=== PATIENT | female | born 1980 | race Caucasian/White ===

== ENCOUNTER 2023-07-31 11:23 | Outpatient (OUT) | payer MEDICARE, MEDICAID, SELFPAY ==
[2023-07-31 11:59] LABS: Basophils Percent Auto 0.3 % (0.2-2.0); Eosinophils Absolute Auto 0.1 10^3/uL (0.0-0.7); Eosinophils Percent Auto 1.4 % (0.9-7.0); Hematocrit 39.2 % (36.0-48.0); Hemoglobin 12.8 g/dL (12.0-16.0); Immature Granulocytes Abs Auto 0.01 10^3/uL (0.00-0.03); Immature Granulocytes Pct Auto 0.3 % (0.0-0.5); Lymphocytes Absolute Auto 0.9 10^3/uL (1.2-3.8); Mean Corpuscular HGB Conc 32.7 g/dL (29.9-35.2); Mean Corpuscular Hemoglobin 32.8 pg (26.7-34.0); Mean Corpuscular Volume 100.5 fL (81.0-99.0); Mean Platelet Volume 10.3 fL (9.5-13.5); Monocytes Absolute Auto 0.5 10^3/uL (0.3-0.8); Monocytes Percent Auto 12.4 % (1.7-12.0); Neutrophils Absolute Auto 2.2 10^3/uL (1.4-6.5); Neutrophils Percent Auto 59.6 % (43.0-75.0); Platelet Count 124 10^3/uL (150-450); White Blood Count 3.6 10^3/uL (4.0-11.0)
[2023-07-31 13:02] LABS: Alanine Aminotransferase 22 U/L (14-59); Albumin Globulin Ratio 1.1; Albumin Level 3.8 g/dL (3.4-5.0); Alkaline Phosphatase 60 U/L (46-116); Anion Gap 11.1; Aspartate Amino Transferase 21 U/L (15-37); BUN Creatinine Ratio 24.4; Bilirubin Direct 0.1 mg/dL (0.0-0.2); Bilirubin Total 0.3 mg/dL (0.2-1.0); Calcium 8.9 mg/dL (8.5-10.1); Carbon Dioxide 31.2 mmol/L (21.0-32.0); Chloride 103 mmol/L (98-107); Estimated GFR (African America >60 (>=60); Estimated GFR (Non-African Ame >60 (>=60); Globulin 3.4 g/dL; Glucose 75 mg/dL (74-106); Potassium 4.3 mmol/L (3.5-5.1); Sodium 141 mmol/L (136-145); Total Protein 7.2 g/dL (6.4-8.2)
[2023-08-01 05:07] LABS: Carbamazepine(Tegretol),S 5.4 ug/mL (4.0-12.0); Phenobarbital, Serum 18 ug/mL (15-40)
== END 2023-07-31 11:24 | disposition home or self-care (01) ==
LOC: LAB 11:29
PROVIDERS: PCP Family Medicine
DX: R56.9 Unspecified convulsions (principal)
CPT/HCPCS: 36415; 80048; 80076; 80156; 80184; 85025

== ENCOUNTER 2024-06-27 15:26 | Outpatient (OUT) | payer MEDICARE, MEDICAID, SELFPAY ==
[2024-06-27 16:00] LABS: Basophils Percent Auto 0.2 % (0.2-2.0); Eosinophils Absolute Auto 0.1 10^3/uL (0.0-0.7); Eosinophils Percent Auto 1.9 % (0.9-7.0); Hematocrit 40.9 % (36.0-48.0); Hemoglobin 13.4 g/dL (12.0-16.0); Immature Granulocytes Abs Auto 0.01 10^3/uL (0.00-0.03); Immature Granulocytes Pct Auto 0.2 % (0.0-0.5); Lymphocytes Absolute Auto 1.4 10^3/uL (1.2-3.8); Mean Corpuscular HGB Conc 32.8 g/dL (29.9-35.2); Mean Corpuscular Hemoglobin 32.8 pg (26.7-34.0); Mean Corpuscular Volume 100.2 fL (81.0-99.0); Mean Platelet Volume 10.7 fL (9.5-13.5); Monocytes Absolute Auto 0.6 10^3/uL (0.3-0.8); Monocytes Percent Auto 13.1 % (1.7-12.0); Neutrophils Absolute Auto 2.6 10^3/uL (1.4-6.5); Neutrophils Percent Auto 55.6 % (43.0-75.0); Platelet Count 148 10^3/uL (150-450); Red Blood Count 4.08 10^6/uL (4.20-5.40); Red Cell Distribution Width 12.3 % (11.0-15.0); White Blood Count 4.7 10^3/uL (4.0-11.0)
[2024-06-27 17:07] LABS: Alanine Aminotransferase 20 U/L (14-59); Albumin Globulin Ratio 1.1; Albumin Level 3.8 g/dL (3.4-5.0); Alkaline Phosphatase 71 U/L (46-116); Aspartate Amino Transferase 18 U/L (15-37); BUN Creatinine Ratio 19.6; Bilirubin Total 0.3 mg/dL (0.2-1.0); Calcium 8.6 mg/dL (8.5-10.1); Carbon Dioxide 32.1 mmol/L (21.0-32.0); Chloride 101 mmol/L (98-107); Estimated GFR (African America >60 (>=60); Estimated GFR (Non-African Ame >60 (>=60); Globulin 3.4 g/dL; Glucose 84 mg/dL (74-106); Potassium 4.1 mmol/L (3.5-5.1); Sodium 135 mmol/L (136-145); Total Protein 7.2 g/dL (6.4-8.2)
[2024-06-29 08:08] LABS: Carbamazepine(Tegretol),S 3.3 ug/mL (4.0-12.0); Phenobarbital, Serum 18 ug/mL (15-40)
== END 2024-06-27 15:27 | disposition home or self-care (01) ==
LOC: LAB 15:28
PROVIDERS: PCP Family Medicine; Visit Provider Family Medicine
DX: Z00.00 Encounter for general adult medical examination without abnormal findings (principal); G40.909 Epilepsy, unspecified, not intractable, without status epilepticus
CPT/HCPCS: 36415; 80053; 80156; 80184; 85025

== ENCOUNTER 2025-10-31 10:50 | Outpatient (OUT) | payer MEDICARE, MEDICAID, SELFPAY ==
--- OUTSIDE RECORDS SUMMARY | 2025-10-21 09:30 | XMS_ITS | Continuity of Care Document ---
Author Organization [facility] Address [address] [place] [address] Phone Care Team Providers Care Arboreal Scientist Name Role Phone Coby Peralta APRN Attending Provider NON STAFF Primary Care Provider Unavailabl e Care Teams Patient Care Team Team Status: Active Member Role/Relationship Status Dates NON STAFF Primary Care Provider Active Patient Care Team Team Status: Inactive Member Role/Relationship Status Dates Coby Peralta APRN Attending Provider Active Start: October 21, 2025 End: October 21, 2025NON STAFFPrimary Care ProviderActiveStart: October 21, 2025 End: October 21, 2025 Chief Complaint and Reason for Visit Chief Complaint Admit Date follow up October 21, 2025 1:47pm Reason for Visit Admit Date Mental disability October 21, 2025 1:47pm Nightmares October 21, 2025 1:47pm REM sleep behavior disorder October 1:47pm Seizure disorder October 21, 2025 1:47pm Allergies, Adverse Reactions, Alerts Allergen Type Severity Reaction Last Updated Verified Status No Known Allergies Allergy Unknown October 21, 2025 2:06pmYesActive Social History Smoking Status Unknown if ever smoked Observation Status Observation Response Date of Response Legal Sex Female (finding) Sex Assigned At BirthFemaleSeptember 1979 Problems Active Problems Problem Diagnosis/Recorded Date Onset Date Stat us Unspecified convulsions April 22, 2025 3:43pm Unknown Active Mental disability October 21, 2025 2:12pm Unknown Active Nightmares October 21, 2025 2:12pm Unknown A ctive REM sleep behavior disorder October 21, 2025 2:12pm Unknown Active Seizure disorder October 21, 2025 2:12pm Unknown Active Medications Medication Status Dose Units Route Directions Qty Days Refills S tart Date Stop Date End Date Reason(s) Instructions Adherence Quetiapine (Seroquel) 25 mg tablet Discontinued 0 PODaily at [id number] 17th, 2025 11:00pmSept2024 9:26am1/2-1 tablet orally daily at bedtime;Phenobarbital 97.2 mg yjwrqfZapmdzygoluc69.2MGPO Daily at ebmebhw30093Sviv2024 11:00pmJun2024 2:40pmConvulsions Unspecified convulsionsPhenobarbital 97.2 mg pqgvddRsqxnhwdnuhq93.2MGPODaily at ctqyilo12013Adwv 19th, 2025 2:38pmJun2024 3:19pmConvulsions Unspecified convulsionsPhenobarbital 97.2 mg jhchxyQxjixwcdeulp08.2MGPODaily at qdospbc25166Inzu 19th, 2025 3:19pmSept2024 9:26amConvulsions Unspecified convulsionsQuetiapine (Seroquel) 25 mg oxilxwKzeyjh2PWDgbep at thonjnm97817Aqpswxihs2024 9:23am1/2-1 tablet orally daily at bedtime; Complies with drug therapyPhenobarbital 97.2 mg gbnvmkIbqcfe72.2MGPODaily at fqpgbsv04625Bzbkjmvmr2024 9:25amConvulsions Unspecified convulsionsComplies with drug therapyCarbamazepine 200 mg capsule, ER multiphase 12 ieUtffcokusqkz838TEUHXkmre dhxik95880BxklxjvhSeptember 15, 2025 12:00amNove2024 5:52pmCarbamazepine 200 mg capsule, ER multiphase 12 udSbwbor713AWOPDmuax hnnor761826Xhfuggoi 11th, 2025 5:52pmComplies with drug therapyLinaclotide (Linzess) 145 mcg jiolnukIxlksu745IVYSLVhkgjWkaclcpi 17th, 2025 12:00amComplies with drug therapy Vital Signs Vital Reading Result Reference Range Collection Date/Time BP Systolic 118 mm[Hg] 100-140 October 21, 2025 2:11pm BP Diastolic 72 mm[Hg] 60-100 Eric 17th, 2025 2:11pm Advance Directives Advance Directive Response Recorded Date/ Time Advance Directives No July 8:38am Insurance Providers Guarantor Lyn Caba Address [address] [place] [address]Iebjdee Info.Home Phone: Coverage Status Update:2025 Payer Group Member ID Coverage Type Subscriber Relationship to Subscriber Effective Date Expiration Date Medicaid [id number] A Gertrudis Id: [id number] [address] [place] [address] Home Phone: Email: [email or web address] [id number] A Gertrudis Id: [id number] [address] [place] [address] Home Phone: Email: [email or web address] RaMy[facility] PGBA [id number] A Gertrudis Id: [id number] [address] [place] [address] Home Phone: Email: [email or web address] Encounter Location(s) Arrival/Admit Date Discharge/Departure Date Discharge/Departure Disposition Provider(s) Departed Physician/ Provider Office Visit -[facility] Neu[facility] [place] October 21, 2025 1:47pm October 21, 2025 2:29pm Discharged to home care or self care (routine discharge) Christophe Andres APRN Recent Diagnosis Onset Date Admit Date Mental disability Unknown October 21, 2025 1:47pm Nightmares Unknown October 21, 2 025 1:47pm REM sleep behavior disorder Unknown Dece mber 2024 1:47pm Seizure disorder Unknown October 21, 2025 1:47pm Assessments Diagnosis Onset Date Resolution Status Admit Date Mental disability acuteDece2024 1:47pmNightmaresacuteDece2024 1:47pmREM sleep behavior disorderacuteDece2024 1:47pmSeizure disorderacute October 21, 2025 1:47pm Plan of Treatment Author [facility]y [facility]eralta [facility] CenterAuthoredDecevic 2024 2:25pmReview and summary of old records: Labwork 07/2023 BMP and LFTs unremarkable, CBC with Diff WBC 3.6, RBC 3.9, PLTs 124, abs lymphs 0.9, 10/2021 WBC 5.4, PLTs 134, abs lymphs 1.3 to compare most recent, tegretol 5.4, phenobarb 18 06/27/2024 phenobarb 18, carbamazepine 3.3, CMP and CBC with diff slight variations, WBC 4.7 . . 44 year-old female with MRDD and seizure disorder that remains controlled on her current meds. She has not had a breakthrough seizure in many years. Her labs fairly good with just some minor variations. Her PCP is monitoring that also. Her WBC was low but is back in normal range. ?? Insomnia and some nightmares so we will go ahead and increase her Seroquel to 1- 2 at bedtime and see if that helps out. Her REM behavior disorder appears to be controlled at this time. Have some sleep cycle disorder as she automatically wakes up at 4 or 5 am pending clock/time change and no matter when she goes to bed. She does go to dayhab/workshop 5 days/week. She will take a nap after her dayhab at times. ?? Mother is aware of the black box warning with the Seroquel with increased risk of falls stroke and she has been tolerating well and they feel the risk is worth the benefit. . . . Plan Can increase the Seroquel to 1-2 at bedtime continue seroquel 25mg 1/2- 1 tabs po QHS continue phenobarbital 97.2 mg po QHS continue carbatrol 200mg ER po BID OARRS reviewed at time of refills and today, no concerns The patient was counseled on proper sleep hygiene and adequate hours of sleep. Monitor for any worsening Call if new seizures This was discussed with the patient, all questions were answered and they agreed with the treatment plan. The patient is to call with any worsening of the condition or new symptoms. ?? Return to clinic: 6 months Future Tests Future scheduled test information is unavailable Pending Tests Pending diagnostic test information is unavailable Future Visits Future appointment information is unavailable Future Procedures Procedure Name Ordered Date Scheduled Date Basic Metabolic Panel October 21, 2025 2:25pm Carbamazepine (Tegretol)October 21, 2025 2:25pmComplete Blood Count Auto Diff October 21, 2025 2:25pmHepatic PanelDecember 2024 2:25pmPhenobarbital October 21, 2025 2:25pm Future Medications Future medication information is unavailable Patient Instructions Patient instructions are unavailable
--- OUTSIDE RECORDS SUMMARY | 2025-10-31 10:55 | XMS_ITS | CCD ---
Author Organization [facility] Care Team Providers Care Electrical Maintenance Supervisor Name Role Phone ABRAHAM, DR SANTOS Attending Unavailable ABRAHAM, DR SANTOS Consulting Unavailable ABRAHAM, DR SANTOS Admitting Unavailable MARIJA, DR KING Snider Primary Care Unavailable Jack Ayala MD Primary Care Provider Jack Ayala MD Primary Care Provider Tom Rosario DO Unavailable Jack Ayala Attending Unavailable Jack Ayala Attending Unavailable Jack Ayala Attending Unavailable Jack Ayala Attending Unavailable Jack Ayala Attending Unavailable Jack Ayala Attending Unavailable Jack Ayala Attending Unavailable ANDREW BARRAZA Attending Unavailable JAY SALCIDO Attending Unavailable TOM ROSARIO Attending Unavailable JAY SALCIDO Attending Unavailable GLORIA AMAYA Attending Unavailable JAY SALCIDO Attending Unavailable JAY SALCIDO Attending Unavailable JAY SALCIDO Attending Unavailable Allergies Allergy ClassificationReported Allergen(s)Allergy TypeDate of OnsetReaction(s) Facility (1 source)No Known Medication Allergies; Translations: [No Known Medication Allergies]Propensity to adverse reactions (disorder)[facility] Medications Current Medications MedicationDrug Class(es)DatesSig (Normalized)Sig (Original)12 hr carBAMazepine 200 mg extended release oral capsule (20 sources)Mood StabilizerStart: [id number] 1 capsule by mouth in the morning, then take 1 capsule by mouth every twelve hours at bedtimecarBAMazepine ER (Carbatrol) 200 MG 12 hr capsule Indications: Seizure disorder (HCC) Take 1 capsule (200 mg) by mouth in the morning and 1 capsule (200 mg) before bedtime. 180 capsule 1 01/13/2025 ActiveStart: 01-13-2025 End: 77-02-7665wpfm 1 capsule by mouth in the morning, then take 1 capsule by mouth every twelve hours at bedtimecarBAMazepine ER (Carbatrol) 100 MG 12 hr capsule Indications: Sleep-wake cycle disorder , Seizure (CMS/HCC) , Seizure disorder (CMS/HCC) Take 1 capsule (100 mg) by mouth in the morning and 1 capsule (100 mg) before bedtime. Do not crush or chew.. 180 capsule 1 01/13/2025 01/13/2025 Discontinued (Therapy completed)Start: 42-93-0365momf 1 capsule by mouth in the morning, then take 1 capsule by mouth every twelve hours at bedtime carBAMazepine ER (Carbatrol) 200 MG 12 hr capsule Indications: Seizure disorder (CMS/HCC) Take 1 capsule (200 mg) by mouth in the morning and 1 capsule (200 mg) before bedtime. 180 capsule 1 07/28/2024 ActiveStart: 03-18-2024 End: 13-37-9995jhso 1 capsule by mouth twice dailycarBAMazepine ER (Carbatrol) 200 MG 12 hr capsule Indications: Seizure disorder (CMS/HCC) TAKE ONE CAPSULE BY MOUTH TWICE A DAY 180 capsule 1 03/18/2024 07/28/2024 Discontinued (Reorder)take 1 capsule by mouth in the morning, then take 1 capsule by mouth every twelve hours at bedtimecarBAMazepine ER (Carbatrol) 100 MG 12 hr capsule Take 100 mg by mouth in the morning and 100 mg before bedtime. Do not crush or chew. . Active linaclotide 0.072 mg oral capsule (17 sources)Guanylate Cyclase-C Agonisttake 1 capsule by mouth once dailyLinzess 72 MCG capsule Take 72 mcg by mouth Daily ActivePHENobarbital 97.2 mg oral tablet (20 sources)Start: 62-89-0416eguk 1 tablet by mouth at bedtimePHENobarbital (Luminal) 97.2 MG tablet Indications: Seizure (HCC) Take 1 tablet (97.2 mg) by mouth at bedtime R56.9 90 tablet 01/13/2025 ActiveStart: 65-11-5319osjd 1 tablet by mouth at bedtimePHENobarbital (Luminal) 97.2 MG tablet Indications: Seizure (CMS/HCC) Take 1 tablet (97.2 mg) by mouth at bedtime R56.9 90 tablet 10/27/2024 ActiveStart: 04-28-2024 End: 07-24-3306eavv 1 tablet by mouth at bedtimePHENobarbital (Luminal) 97.2 MG tablet Indications: Seizure (CMS/HCC) Take 1 tablet (97.2 mg) by mouth at bedtime R56.9 90 tablet 07/28/2024 10/23/2024 Discontinued (Reorder)QUEtiapine 25 mg oral tablet (20 sources)Atypical AntipsychoticStart: 91-27-1966qtpp 1-2 tablets by mouth once at bedtimeQUEtiapine (SEROquel) 25 MG tablet Indications: Sleep-wake cycle disorder 1-2 po q hs 180 tablet 1 01/13/2025 ActiveStart: 07-28-2024 End: 86-60-1207smiu 1 tablet by mouth at bedtimeQUEtiapine (SEROquel) 25 MG tablet Indications: Sleep-wake cycle disorder Take 1 tablet (25 mg) by mouth at bedtime 90 tablet 1 07/28/2024 Active Problems Active Problems Problem ClassificationProblemDateDocumented DateEpisodic/ChronicDevelopmental disorders (20 sources)Intellectual disability; Translations: [Unspecified intellectual disabilities]49-76-7453CivvfcdPzhhekwxi usually diagnosed in infancy, childhood, or adolescence (20 sources)Behavioral and emotional 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; Translations: [Unspecified behavioral and emotional disorders with onset usually occurring in childhood and adolescence]Onset: [id number] Epilepsy; convulsions (19 sources)Seizure disorder; Translations: [Epilepsy, unspecified, not intractable, without status epilepticus]Onset: [id number] Epilepsy; convulsions (20 sources)Unspecified convulsions; Translations: [Seizure]Onset: 10-31-2021 EpisodicMycoses (6 sources)Pain in toe; Translations: [Tinea unguium]90-38-9492MsykvcybSprwi acquired deformities (18 sources)Scoliosis deformity of spine; Translations: [Scoliosis, unspecified] 38-54-5048ThscohrHnhrw and unspecified benign neoplasm (2 sources)Melanocytic nevus of trunk; Translations: [Melanocytic nevi of trunk] 15-60-7522QzvvndenHwnxf and unspecified benign neoplasm (2 sources)Melanocytic nevus of right lower limb; Translations: [Melanocytic nevi of right lower limb, including hip]16-40-4293SinlutihGdwul and unspecified benign neoplasm (2 sources)Melanocytic nevus of left lower limb; Translations: [Melanocytic nevi of left lower limb, includinghip]02-03-9911QrpjnpocZarwd and unspecified benign neoplasm (2 sources)Melanocytic nevus of upper limb; Translations: [Melanocytic nevi of unspecified upper limb, including shoulder]07-15-0335AvgufwxuQouso nervous system disorders (20 sources)Abnormal circadian rhythm; Translations: [Circadian rhythm sleep disorder, unspecified type]Onset: 771956-42-8850SfsbamgAivwi skin disorders (2 sources)Seborrheic keratosis; Translations: [Other seborrheic keratosis] 00-72-0550TgnokfszKzanq skin disorders (2 sources)Scar conditions and fibrosis of skin; Translations: [Scar conditions and fibrosis of skin]50-77-2151FijgswmaQqfeudkt codes; unclassified (20 sources)REM sleep behavior disorder; Translations: [REM sleep behavior disorder]Onset: hronic Past or Other Problems Problem ClassificationProblemDateDocumented DateEpisodic/ChronicOther connective tissue disease (1 source)Pain of toes of bilateral feet; Translations: [Pain in right toe(s)] 28-74-3154Ucftbcof Results Test NameValueInterpretationReference RangeFacilityAmbulatory Visit Summaryon 17-03-0749Movqwldvez Visit SummaryAmbulatory Visit Summary ELVER PENN :1980 Visit Date:06/17/2025 Ambulatory Visit Instructions Your Diagnosis UTI symptoms Your Care Team Attending Physician - ANDREW BARRAZA CNP Primary Care Physician - Jack Ayala MD This Is Your Medications List nitrofurantoin (Macrodantin 100 mg oral capsule) Contact prescribing physician if questions or concerns carbamazepine (carbamazepine 200 mg ER Tab) linaclotide (Linzess 145 mcg oral capsule) multivitamin phenobarbital (phenobarbital 97.2 mg oral tablet) polyethylene glycol 3350 (MiraLax) quetiapine (SEROquel 25 mg Tab) Procedures Performed Duarte pastor, Myringotomy. Discharge Vitals Temperature (Axillary) 36.8 ???C Respiratory Rate 18 Blood Pressure 110/76 Height 163.2 cm Height 64 in Weight 55.3 kg Weight 121.915 lb BMI 20.76 What to do next Scheduled Follow-Up Appointments 2025 1:00 PM EDT Where: [facility] [id number] [place] [address]- Medications What How Much When Why Instructions New nitrofurantoin (Macrodantin 100 mg oral capsule) 1 Capsules By Mouth 4 times a day UTI symptomsDuration: 5 Days Pickup at [facility] Unchanged carbamazepine (carbamazepine 200 mg ER Tab) 1 Tablets By Mouth 2 times a day Contact prescribing physician if questions or concerns Unchanged linaclotide (Linzess 145 mcg oral capsule) 1 Capsules By Mouth Every day Contact prescribing physician if questions or concerns Unchanged multivitamin See instructions Take one orally daily Contact prescribing physician if questions or concerns Unchanged phenobarbital (phenobarbital 97.2 mg oral tablet) 1 Tablets By Mouth At bedtime Contact prescribing physician if questions or concerns Unchanged polyethylene glycol 3350 (MiraLax) See instructions Use as directed as needed for constipation Contact prescribing physician if questions or concerns Unchanged quetiapine (SEROquel 25 mg Tab) See instructions 1-2 tab orally at bedtime Contact prescribing physician if questions or concerns Pharmacy Information [facility]: [address], [place] [id number] [phone] Allergies No Known Medication Allergies Problems Ongoing - Any problem that you are currently receiving treatment for. 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 Please share your experience with us by completing your survey. We appreciate your feedback and thank you for choosing us for your care. Patient Portal You may access all of your results and other medical record information on our secure patient portal. If you are not signed up for this yet, please contact Health Information Management at [phone] to get signed up today. Language Information Language assistance services are available as needed. [facility] Office/Clinic Noteon [id number] Medicine Office/Clinic NoteFabournewood hospital Medicine Office/Clinic Note Chief Complaint Possible UTI The patient presents with symptoms suggestive of a urinary tract infection. HPI Staff Former Dr Jamie hawkins. Presenting today for possible UTI. Pt is incapable of providing urine specimen to to disability. Complete incontinence. Mom does state that her urine has had a strong odor to it since Sunday. Urine is also a darker color. Have not noticed a fever. Has been more restlessness at night. I have reviewed and verified the staff HPI to be accurate for this encounter. History of Present Illness 44-year-old female presenting with her mother with pressumtive symptoms suggestive of a urinary tract infection. The symptoms began approximately one week ago, characterized by dark, foul-smelling urine and increased urinary frequency noted by her daycare. The patient is non-verbal, making symptom a ssessment challenging, but she has been restless at night, which is atypical for her. Attempts to collect a urine sample at home were unsuccessful, and previous attempts at catheterization were traumatic and unsuccessful. The patient has no known allergies to medications and has not been on antibiotics since last fall for a sore throat. The caregiver has been administering cranberrysupplements and encouraging fluid intake to alleviate symptoms. Review of Systems - Genitourinary: Reports dark, foul-smelling urine and increased urinary frequency. Denies ability to provide a urine sample. - Neurological: Reports restlessness at night, atypical behavior for the patient. Physical Exam Vitals & Measurements T: 36.8 ???C(Axillary) RR: 18 BP: 110/76 HT: 64 in HT: 163.2 cm WT: 121.915 lb WT: 55.3 kg BMI: 20.76 General: alert, no acute distress Skin: warm, dry Cardiovascular: regular rate and rhythm, normal peripheral perfusion Respiratory: Lungs CTA, respirations non labored Gastrointestinal: soft, non distended, no tenderness, no guarding. Back: No tenderness, Normal ROM, Normal alignment. Assessment/Plan 1. UTI symptoms (R39.9: Unspecified symptoms and signs involving the genitourinary system) - Consideration for empirical antibiotic therapy due to inability to obtain a urine sample and previous traumatic catheterization attempts. - Monitor fluid intake and encourage hydration to help alleviate symptoms. - Plan to conduct blood work if symptoms persist to check for elevated white blood cell count as anindicator of infection. 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 Medications carbamazepine 200 mg ER Tab, 200 mg= 1 tab(s), Oral, BID Linzess 145 mcg oral capsule, 145 mcg= 1 cap(s), Oral, Daily Macrodantin 100 mg oral capsule, 100 mg= 1 cap(s), Oral, QID MiraLax, See Instructions multivitamin, See Instructions phenobarbital 97.2 mg oral tablet, 97.2 mg= 1 tab(s), Oral, Bedtime SEROquel 25 mg Tab, See Instructions Allergies No Known Medication Allergies Social History Alcohol - Denies Alcohol Use, 01/22/2025 Substance Abuse - Denies Substance Abuse, 01/22/2025 Tobacco - Denies Tobacco Use, 01/22/2025 Never (less than 100 in lifetime) Tobacco Use:. Never Smokeless Tobacco Use:. Household tobacco concerns: No. Yes, 06/17/2025 Family History Family history is negative Immunizations Vaccine Date Status Comments influenza virus vaccine, inactivated 07/22/2024 Given influenza virus vaccine, inactivated 09/25/2023 Recorded SARS-CoV-2 (COVID-19) [id number] 10/18/2022 Recorded 2024-01-30: TPV40 influenza virus vaccine, inactivated 09/02/2022 Recorded influenza virus vaccine, inactivated 10/13/2021 Recorded SARS-CoV-2 (COVID-19) mRNA-1273 vaccine 09/09/2021 Recorded 2024-01-30: TPV40 SARS-CoV-2 (COVID-19) mRNA-1273 vaccine 12/30/2020 Recorded SARS-CoV-2 (COVID-19) mRNA-1273 vaccine 12/02/2020 Recorded influenza virus vaccine, inactivated 09/13/2020 Recorded influenza virus vaccine, inactivated 09/04/2018 Recorded influenza virus vaccine, inactivated 09/20/2017 Recorded influenza virus vaccine, inactivated 11/06/2014 Recorded hepatitis B adult vaccine 02/04/2003 Recorded hepatitis B adult vaccine 04/23/2002 Recorded hepatitis B adult vaccine 03/05/2002 Recorded measles/mumps/rubella virus vaccine 07/08/1993 Recorded measles/mumps/rubella virus vaccine 10/05/1982 RecordedCincinnati Children's Hospital Medical CenterComment on above:Result Comment: Electronically Signed By: ANDREW BARRAZA CNP\.br\Date and Time Signed: 06/17/25 15:22 EDTAmbulatory Visit Summaryon 40-49-8386Vmxmfhqiom Visit SummaryAmbulatory Visit Summary ELVER PENN :1980 Visit Date:01/22/2025 Ambulatory Visit Instructions Your Diagnosis Encounter for initial annual wellness visit (AWV) in Medicare patient Epilepsy Seizures Screening for ischemic heart disease Your Care Team Attending Physician - Jack Ayala MD Primary Care Physician - Jack Ayala MD This Is Your Medications List carbamazepine (carbamazepine 200 mg ER Tab) linaclotide (Linzess 145 mcg oral capsule) multivitamin phenobarbital (phenobarbital 97.2 mg oral tablet) polyethylene glycol 3350 (MiraLax) quetiapine (SEROquel 25 mg Tab) Procedures Performed Duarte pastor, Myringotomy. Discharge Vitals Heart Rate (Peripheral) 64 Blood Pressure 104/60 Height 163.2 cm Height 64 in Weight 53.0 kg Weight 116.845 lb BMI 19.9 What to do next Scheduled Follow-Up Appointments 2024 8:20 AM EDT Where: [address] [address] 2025 1:00 PM EDT Where: [facility] [address] [address]- You Need to Complete the Following Lipid Panel, Blood, Routine collect, 01/22/25, Order for future visit, Lab Collect, Screening for ischemic heart disease, Print Label By Order Location Medications What How Much When Instructions Unchanged carbamazepine (carbamazepine 200 mg ER Tab) 1 Tablets By Mouth 2 times a day Unchanged linaclotide (Linzess 145 mcg oral capsule) 1 Capsules By Mouth Every day Unchanged multivitamin See instructions Take one orally daily Unchanged phenobarbital (phenobarbital 97.2 mg oral tablet) 1 Tablets By Mouth At bedtime Unchanged polyethylene glycol 3350 (MiraLax) See instructions Use as directed as needed for constipation Unchanged quetiapine (SEROquel 25 mg Tab) See instructions 1-2 tab orally at bedtime Allergies No Known Medication Allergies Problems Ongoing - Any problem that you are currently receiving treatment for. 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 Please share your experience with us by completing your survey. We appreciate your feedback and thank you for choosing us for your care. [facility] CenterAmbulatory Visit Summary Ambulatory Visit Summary ELVER PENN :1980 Visit Date:01/22/2025 Ambulatory Visit Instructions Your Diagnosis Epilepsy Seizures BMI less than 19,adult Nonsmoker Chronic idiopathic constipation Your Care Team Attending Physician - Jack Ayala MD Primary Care Physician - Jack Ayala MD This Is Your Medications List carbamazepine (carbamazepine 200 mg ER Tab) linaclotide (Linzess 145 mcg oral capsule) multivitamin phenobarbital (phenobarbital 97.2 mg oral tablet) polyethylene glycol 3350 (MiraLax) quetiapine (SEROquel 25 mg Tab) Procedures Performed Duarte pastor, Myringotomy. What to do next Scheduled Follow-Up Appointments Sunday 1:40 PM EDT With: Jack Ayala MD Where: [address] [address] 2025 1:00 PM EDT With: Where: [address] [address]- You Need to Complete the Following Lipid Panel, Blood, Routine collect, 01/22/25, Order for future visit, Lab Collect, Screening for ischemic heart disease, Print Label By Order Location Medications What How Much When Instructions Unchanged carbamazepine (carbamazepine 200 mg ER Tab) 1 Tablets By Mouth 2 times a day Unchanged linaclotide (Linzess 145 mcg oral capsule) 1 Capsules By Mouth Every day Unchanged multivitamin See instructions Take one orally daily Unchanged phenobarbital (phenobarbital 97.2 mg oral tablet) 1 Tablets By Mouth At bedtime Unchanged polyethylene glycol 3350 (MiraLax) See instructions Use as directed as needed for constipation Unchanged quetiapine (SEROquel 25 mg Tab) See instructions 1-2 tab orally at bedtime Allergies No Known Medication Allergies Problems Ongoing - Any problem that you are currently receiving treatment for. 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 Please share your experience with us by completing your survey. We appreciate your feedback and thank you for choosing us for your care. [facility] Medicine Office/Clinic Noteon [id number] Medicine Office/Clinic NotePhaneuf Hospital Medicine Office/Clinic Note Chief Complaint Initial Medicare Wellness History of Present Illness Covid-19, MERS, Ebola Screen *Contact With Person With Highly Contagious Disease Like Ebola/MERS/COVID-19 AND Have One or More of the Symptoms Below : No *Travel to a Country With Wide-Spread Ebola/MERS/COVID-19 in the Past 21 Days AND Have One or More of the Symptoms Below : No Patient Reported Covid-19 Testing : No *Verify Droplet, Contact Precautions for Ebola (Reference for CDC) : N/A *Verify Airborne, Droplet Precautions for MERS/COVID-19 : N/A Cortney Beaulieu - 01/22/2025 13:06 EDT Medicare/Medicaid Summary Systolic Blood Pressure : 104 mmHg Diastolic Blood Pressure : 60 mmHg Blood Pressure Location : Right arm Blood Pressure Position : Sitting O2 Sat Resting/Exertion Alpha : Resting Peripheral Pulse Rate : 64 bpm Cortney Beaulieu - 01/22/2025 13:19 EDT Patient Counseled : Nutrition, Physical activity Weight Measured : 53.0 kg(Converted to: 116 lb 14 Ounces, 116.845 lb) Body Mass Index Measured : 19.9 kg/m2 Weight in Pounds : 116.845 lb Pain Present : No actual or suspected pain Cortney Beaulieu - 01/22/2025 13:08 EDT Chief Complaint : Initial Medicare Wellness Height/Length Measured : 163.2 cm(Converted to: 5 ft 4 in, 64.25 in) Height in Inches : 64 in Cortney Beaulieu - 01/22/2025 13:06 EDT Hearing and Vision Screening FT FT Whisper Test Comments : no hearing deficits Vision Screen Comments : n/a Cortney Beaulieu - 01/22/2025 13:08 EDT Advance Directive FT Advance Directive : No Cortney Beaulieu 01/22/2025 13:08 EDT Procedures / Surgeries FT - Procedure History (As Of: 01/22/2025 13:19:47 EDT) Anesthesia Minutes: 0 ; Procedure Name: Duarte pastor, for scoliosis ; Procedure Minutes: 0 ; LastReviewed Dt/Tm: 01/22/2025 13:10:14 EDT Anesthesia Minutes: 0 ; Procedure Name: Myringotomy ; Procedure Minutes: 0 ; Comments: 01/30/2024 9:07 EDT - Johanna Marrufo LPN 1982 ; Last Reviewed Dt/Tm: 01/22/2025 13:10:14 EDT Family History Family History (As Of: 01/22/2025 13:19:47 EDT) Negative History Medicare/Medicaid Social History FT Social History (As Of: 01/22/2025 13:19:47 EDT) Alcohol: Denies Alcohol Use (Last Updated: 01/22/2025 13:10:45 EDT by Cortney Beaulieu ) Tobacco: Denies Tobacco Use Never (less than 100 in lifetime) Tobacco Use:. Never Smokeless Tobacco Use:. (Last Updated: 01/22/2025 13:11:03 EDT by Cortney Beaulieu) Substance Abuse: Denies Substance Abuse (Last Updated: 01/22/2025 13:10:49 EDT by Cortney Beaulieu ) Health Risk Assessment FT Hazards in your house? : No Fall Risk Past Year : No Worried About Falling : No Use a Cane or Walker? : No Someone Helps You in the Morning : Yes Fallen or felt dizzy standing up? : No Assistance with personal care? : Yes Trouble taking meds correctly? : Yes HRA Pain Present : No Able to walk without help? : No Ability to shop w/out help : No Prepare your own meals? : No Housework without help? : No Handle money without help : No Track own medications without help? : No Overall mood for past four weeks : Pretty well General health rating : Good Someone avail. to help if needed? : Yes, as much as I wanted Phys. & emotional health limit social act? : Slightly Cortney Beaulieu - 01/22/2025 13:08 EDT Misc Health Risks Grid Sexual problems : Seldom Trouble eating well : Seldom Teeth or denture problems : Seldom Problems using the telephone : Seldom Cortney Beaulieu 01/22/2025 13:08 EDT Confident you control health problems : Not very confident Difficulties driving your car? : Not applicable, I do not use a car Seatbelts : I always fasten my seat belt Cortney Beaulieu 01/22/2025 13:08 EDT Depression Screening Depression Screening Result : Not applicable - Screening Not Done (see above) Cortney Beaulieu 01/22/2025 13:08 EDT Social Determinants (PRAPARE) Only Required Stubbs highlighed in yellow need to be filled out and will trigger a referral to the Chronic Care Navigators : [place] What is your housing situation today? : I have housing You or Family Gone Without Household Needs Past Year : No No Transport to Med Appts/Meetings/Work/Meds/Necessities : No Currently Live in Physical and Emotional Safety : Yes Social Determinants (PRAPARE) Info RTF : Social Determinants (PRAPARE) No qualifying data available. Cortney Beaulieu 01/22/2025 13:08 EDT Home Safety Screen FT Emergency Numbers Kept/Updated : Yes Aware of Smoking Dangers : Yes Smoke Alarms/Fire Extinguisher Available : Yes Household Members Fire Safety Knowledge : Yes Floor Rugs Removed or Fastened : Yes Mats in Bathtub/Shower : Yes Stairway Rails or Banisters : Yes Outdoor Clutter Safety : Yes Indoor Clutter Safety : Yes Electrical Cord Safety : Yes Cortney [place] - 01/22/2025 13:08 EDT Medicare/Medicaid Michel Fall Risk History of Fall in Last 3 Months Michel : No Presence of Secondary Diagnosis Michel : N (more content not included)...[facility] HospitalComment on above:Result Comment: Electronically Signed By: Jack Ayala MD\.br\Date and Time Signed: 01/22/25 14:24 EDT\.br\Electronically Co-Signed By: Cortney Beaulieu\.br\Date and Time Co-Signed: 01/22/25 13:52 EDTFamily Medicine Office/Clinic NoteFamily Medicine Office/Clinic Note Chief Complaint Seizure management and constipation issues HPI Staff 6m follow up to epilepsy. Medicare Wellness visit done prior. No seizures. Linzess was increased 07/22/24 due to constipation. Has been working. But mom is still having to give Dulcolax. Did have choking episode last week at school. History of Present Illness The patient is a 44-year-old female presenting with seizure and constipation management. She has a history of epilepsy and experiences seizures, although specific details about these episodes were not extensively covered in this visit. The primary focus was on her chronic idiopathic constipation, worsened despite medication management. She is currently taking Linzess at a higher dose, which provides some relief, but still requires additional use of Dukalox to facilitate bowel movements every few days. This suggests persistent functional constipation issues, possibly compounded by a prior history of hard stools. There was consideration that her irregular toilet habits might also have psychological origins due to a tendency towards avoiding defecation. Alternative treatments, such as Colace, were discussed in context; however, concerns were raised about the potential for dependency. - Discussion on the necessity (or lack thereof) of a cholesterol test given current health status and age. - Recommendations against starting statins as preventative care in the context of low cardiovascular risk. - Previous lab results indicated slightly low RBCS and sodium levels with an increased MCV, potentially related to low B12 or folate levels. However, it was determined not significant enough for re-evaluation at this visit. Physical Exam General: alert, no acute distress ENMT: oral mucosa moist Cardiovascular: Regular rate and rhythm, normal peripheral perfusion Respiratory: Lungs clear to auscultation, respirations non labored Extremities: no deformity, no trauma Neurological: oriented x 4, level of consciousness appropriate for age, CN II- XII intact, motor strength equal & normal bilaterally, speech normal Abdomen: Soft, Non-tender, Non-distended, + Bowel sounds Assessment/Plan 1. Epilepsy (G40.909: Epilepsy, unspecified, not intractable, without status epilepticus) Continues management for epilepsy with stable condition. Ongoing observation for any seizure variances necessary without introducing new treatments. Ordered: CBC w/ Auto Diff Comprehensive Metabolic Panel Folate Level Vitamin B12 Level 2. Seizures (R56.9: Unspecified convulsions) Follow up with Neuro. Ordered: CBC w/ Auto Diff Comprehensive Metabolic Panel Folate Level Vitamin B12 Level 3. BMI less than 19,adult (Z68.1: Body mass index [BMI] 19.9 or less, adult) BMI education added. Ordered: CBC w/ Auto Diff Comprehensive Metabolic Panel Folate Level Vitamin B12 Level 4. Nonsmoker (Z78.9: Other specified health status) Encouragement of continued non-smoking lifestyle, optimizing health outcomes. Reassessment for cholesterol testing deemed unnecessary, agreeing on the low risk of cardiovascularevents and confirming non-initiation of statins. Ordered: CBC w/ Auto Diff Comprehensive Metabolic Panel Folate Level Vitamin B12 Level 5. Chronic idiopathic constipation (K59.04: Chronic idiopathic constipation) Managed with Linzess and Dukalox. Reduction in Colace reliance emphasized to prevent dependency, highlighting importance of continuing current regimen. Ordered: CBC w/ Auto Diff Comprehensive Metabolic Panel Folate Level Vitamin B12 Level 6. 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 Ordered: CBC w/ Auto Diff Comprehensive Metabolic Panel Folate Level Vitamin B12 Level 7. Macrocytic anemia (D53.9: Nutritional anemia, unspecified) Will check B12 and Folate. Ordered: CBC w/ Auto Diff Comprehensive Metabolic Panel Folate Level Vitamin B12 Level Orders: amoxicillin, 500 mg = 1 cap(s), Oral, q12hr, # 20 cap(s), Refills(s) 0, Pharmacy: [facility]/pharmacy #[id number], 163.2, cm, 10/14/24 11:41:00 EST, Height/Length Dosing, 63, kg, 10/14/24 11:41:00 EST, Weight Dosing 1126F Pain severity quantified; no pain present Body Mass Index (BMI) documented 3008F Current tobacco non-user 1036F Functional status assessed 1170F Influenza immunization administered or previously received 4274F Lipid Panel Medicare Initial Visit G0438 Medication list documented in medical record 1159F Patient screen for fall risk: no falls in last year or 1 fall with no injury in last year 1101F Review of all meds by a prescribing practitioner or clinical pharmacist documented in EHR 1160F 44-year-old female with a history of epilepsy and chronic idiopathic constipation presenting with concerns for continued seizure management and constipation. Her epilepsy appears controlled, and she continues on Linzess for constipation, supplemented as needed with Dukalox f (more content not includ ed)...[facility] CenterComment on above:Result Comment: Electronically Signed By: Jamie LOZADA, Jack Greene\.br\Date and Time Signed: 01/22/25 14:05 EDTFamily Medicine Office/Clinic Noteon [id number] Medicine Office/Clinic NoteFamily Medicine Office/Clinic Note HPI Staff Elver is a 44 year old female presenting for sick visit Acute: sore throat, fever, cough Did home covid test-negative this morning Her niece tested + for strep, exposed to her History of Present Illness - See staff HPI. - Mom states Linzes has worked but not completely. Asking for an increase dose. Physical Exam Vitals & Measurements T: 37.0 ???C(Temporal Artery) HR: 76(Peripheral) BP: 100/64 HT: 64 in HT: 163.2 cm WT: 63.0 kg WT: 138.891 lb BMI: 23.65 General: alert, no acute distress ENMT: Pt clinches her teeth every time she is to be examined. Cannot visualize the L TM. R TM is WNL. Cardiovascular: regular rate and rhythm, normal peripheral perfusion Respiratory: Lungs CTA, respirations non labored Extremities: no deformity, no trauma Neurological: oriented x0 , LOC slow, Abdomen: Soft, Nontender, Non-distended, + BS Assessment/Plan 1. Fever (R50.9: Fever, unspecified) - Strep, Covid and Flu negative. - Will treat as patient has a hard time cooperating given her nonverbal state. - Precautions discussed in detail. - Follow up PRN Ordered: Influenza Type A&B POC 81675 Rapid Strep POC 58536 2. Sore throat (J02.9: Acute pharyngitis, unspecified) As above Ordered: Influenza Type A&B POC 01761 Rapid Strep POC 89049 3. Constipation (K59.00: Constipation, unspecified) - Mom would like the linzess increased as it has helped, but minimally. 4. 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 Orders: amoxicillin, 500 mg = 1 cap(s), Oral, q12hr, # 20 cap(s), Refills(s) 0, Pharmacy: [facility]/pharmacy #[id number], 163.2, cm, 10/14/24 11:41:00 EST, Height/Length Dosing, 63, kg, 10/14/24 11:41:00 EST, Weight Dosing linaclotide, 145 mcg = 1 cap(s), Oral, Daily, # 90 cap(s), Refills(s) 0, Pharmacy: [facility]/pharmacy #[id number], 163.2, cm, 10/14/24 11:41:00 EST, Height/Length Dosing, 63, kg, 10/14/24 11:41:00 EST, Weight Dosing Body Mass Index (BMI) documented 3008F Current tobacco non-user 1036F Influenza immunization administered or previously received 4274F Most recent diastolic blood pressure <80 mm Hg 3078F Systolic BP <130 mm Hg (Most Recent) 3074F Follow-up No qualifying data available Problem List/Past Medical History Ongoing Angelman syndrome Constipation Developmental delay Epilepsy Incontinence Intellectual disability, severe Internal tibial torsion Murmur, small VSD Nonverbal Seizures Thoracogenic scoliosis Historical No qualifying data Procedure/Surgical History Duarte pastor, Myringotomy. Medications amoxicillin 500 mg Cap, 500 mg= 1 cap(s), Oral, q12hr carbamazepine 200 mg ER Tab, 200 mg= 1 tab(s), Oral, BID Linzess 145 mcg oral capsule, 145 mcg= 1 cap(s), Oral, Daily MiraLax, See Instructions multivitamin, See Instructions phenobarbital 97.2 mg oral tablet, 97.2 mg= 1 tab(s), Oral, Bedtime SEROquel 25 mg Tab, See Instructions Allergies No Known Medication Allergies Social History Tobacco Never (less than 100 in lifetime) Tobacco Use:. Never Smokeless Tobacco Use:., 10/14/2024 Family History Family history is negative Immunizations Vaccine Date Status Comments influenza virus vaccine, inactivated 07/22/2024 Given influenza virus vaccine, inactivated 09/25/2023 Recorded SARS-CoV-2 (COVID-19) [id number].[id number] 10/18/2022 Recorded 2024-01-30: TPV40 influenza virus vaccine, inactivated 09/02/2022 Recorded influenza virus vaccine, inactivated 10/13/2021 Recorded SARS-CoV-2 (COVID-19) mRNA-1273 vaccine 09/09/2021 Recorded 2024-01-30: TPV40 SARS-CoV-2 (COVID-19) mRNA-1273 vaccine 12/30/2020 Recorded SARS-CoV-2 (COVID-19) mRNA-1273 vaccine 12/02/2020 Recorded influenza virus vaccine, inactivated 09/13/2020 Recorded influenza virus vaccine, inactivated 09/04/2018 Recorded influenza virus vaccine, inactivated 09/20/2017 Recorded influenza virus vaccine, inactivated 11/06/2014 Recorded hepatitis B adult vaccine 02/04/2003 Recorded hepatitis B adult vaccine 04/23/2002 Recorded hepatitis B adult vaccine 03/05/2002 Recorded measles/mumps/rubella virus vaccine 07/08/1993 Recorded measles/mumps/rubella virus vaccine 10/05/1982 Recorded Lab Results Ambulatory Point of Care Results Rapid Strep POC Result: Negative (10/14/24 11:51:00) Influenza A POC: Negative (10/14/24 11:52:00) Influenza B POC: Negative (10/14/24 11:52:00)[facility] Comment on above:Result Comment: Electronically Signed By: Jamie LOZADA, Jack Yo\Date and Time Signed: 10/14/24 12:05 [facility] Medicine Office/Clinic Noteon [id number] Medicine Office/Clinic NoteFabournewood hospital Medicine Office/Clinic Note HPI Staff Elver is a 43 year old female presenting for 6 month follow up epilepsy, seizures Recent labs 07/02/24 Sees neuro next week, labs were faxed to them flu vaccine: will take today questions/concerns: Won't take the ensure mom did get her carnation instant and she's been drinkingthat. History of Present Illness Here for 6-month follow-up. No concerns. Reviewed labs with family. See staff HPI. Physical Exam Vitals & Measurements T: 37.1 ?C(Temporal Artery) HR: 64(Peripheral) BP: 98/60 SpO2: 100% HT: 64 in HT: 163.2 cm WT: 53.5 kg WT: 117.7 lb BMI: 20.09 General: alert, no acute distress, happy demeanor noted ENMT: oral mucosa moist, Cardiovascular: regular rate and rhythm, normal peripheral perfusion Respiratory: Lungs CTA, respirations non labored Extremities: no deformity, no trauma Neurological: , LOC slow, CN II-XII intact, motor strength equal & normal bilaterally, speech aphasic Abdomen: Soft, Nontender, Non-distended, + BS Assessment/Plan 1. Epilepsy (G40.909: Epilepsy, unspecified, not intractable, without status epilepticus) At this time patient has not had any seizures. Patient is following up with neuro next week. Ordered: influenza virus vaccine, inactivated, 0.5 mL, Susp-Inj, IntraMuscular, Once, Stop date 07/22/24 14:00:00 EDT, Routine, Start date 07/22/24 14:00:00 EDT Body Mass Index (BMI) documented 3008F Current tobacco non-user 1036F Influenza immunization administered or previously received 4274F Most recent diastolic blood pressure <80 mm Hg 3078F Systolic BP <130 mm Hg (Most Recent) 3074F 2. Seizures (R56.9: Unspecified convulsions) - As above Ordered: influenza virus vaccine, inactivated, 0.5 mL, Susp-Inj, IntraMuscular, Once, Stop date 07/22/24 14:00:00 EDT, Routine, Start date 07/22/24 14:00:00 EDT Body Mass Index (BMI) documented 3008F Current tobacco non-user 1036F Influenza immunization administered or previously received 4274F Most recent diastolic blood pressure <80 mm Hg 3078F Systolic BP <130 mm Hg (Most Recent) 3074F 3. Constipation, unspecified constipation type (K59.00: Constipation, unspecified) Will increase Linzess as patient is still having issues with bowel movements. Will monitor. Ordered: influenza virus vaccine, inactivated, 0.5 mL, Susp-Inj, IntraMuscular, Once, Stop date 07/22/24 14:00:00 EDT, Routine, Start date 07/22/24 14:00:00 EDT Body Mass Index (BMI) documented 3008F Current tobacco non-user 1036F Influenza immunization administered or previously received 4274F Most recent diastolic blood pressure <80 mm Hg 3078F Systolic BP <130 mm Hg (Most Recent) 3074F 4. Developmental delay (R62.50: Unspecified lack of expected normal physiological development in childhood) Stable. Discussed preventative measures and family does not want preventative measures such as Papsmammos and colonoscopies. Ordered: influenza virus vaccine, inactivated, 0.5 mL, Susp-Inj, IntraMuscular, Once, Stop date 07/22/24 14:00:00 EDT, Routine, Start date 07/22/24 14:00:00 EDT Body Mass Index (BMI) documented 3008F Current tobacco non-user 1036F Influenza immunization administered or previously received 4274F Most recent diastolic blood pressure <80 mm Hg 3078F Systolic BP <130 mm Hg (Most Recent) 3074F 6. Nonsmoker (Z78.9: Other specified health status) Please continue not to smoke. Ordered: Body Mass Index (BMI) documented 3008F Current tobacco non-user 1036F Influenza immunization administered or previously received 4274F Most recent diastolic blood pressure <80 mm Hg 3078F Systolic BP <130 mm Hg (Most Recent) 3074F Encounter for immunization (Z23: Encounter for immunization) Flu given Ordered: Admin flu virus vaccine G0008 Follow-up No qualifying data available Problem List/Past Medical History Ongoing Angelman syndrome Constipation Developmental delay Epilepsy Incontinence Intellectual disability, severe Internal tibial torsion Murmur, small VSD Nonverbal Seizures Thoracogenic scoliosis Historical No qualifying data Procedure/Surgical History Duarte pastor, Myringotomy. Medications carbamazepine 200 mg ER Tab, 200 mg= 1 tab(s), Oral, BID Linzess 72 mcg oral capsule, 72 mcg= 1 cap(s), Oral, Daily, 4 refills MiraLax, See Instructions, Self Directed multivitamin, See Instructions phenobarbital 97.2 mg oral tablet, 97.2 mg= 1 tab(s), Oral, Bedtime SEROquel 25 mg Tab, See Instructions Allergies No Known Medication Allergies Social History Tobacco Never (less than 100 in lifetime) Tobacco Use:. Never Smokeless Tobacco Use:., 07/22/2024 Family History Family history is negative Immunizations Vaccine Date Status Comments influenza virus vaccine, inactivated 07/22/2024 Given influenza virus vaccine, inactivated 09/25/2023 Recorded SARS-CoV-2 (COVID-19) [id number].[id number] 10/18/2022 Recorded 2024-01-30: TPV40 influenza virus vacci (more content not included)...[facility] CenterComment on above:Result Comment: Electronically Signed By: Jamie LOZADA, Jack Finney.br\Date and Time Signed: 07/22/24 13:41 EDTPHENOBARBITALon 11-02-2021 Phenobarbital, Serum16 ug/cIOsfbkv08-96IhlAdena Health SystemComment on above: Result Comment: Detection Limit = 3Performed By: #### PHENOB #### [facility] [address] [place] [address] Dr. Emmanuel Wilder AUTO DIFFon [id number] #0.0 103/ulNormal0.0-0.1[facility] SystemComment on above:Performed By: #### CBC #### [facility] [address] [place] [address] Dr. Emmanuel ChinBasophils/100 WBC (Bld)0.2 %Normal0.2-2.0[facility] Comment on above:Performed By: #### CBC #### [facility] [address] [place] [address] Dr. Emmanuel Segundo #0.1 103/ulNormal0.0-0.7The [facility] HospitalComment on above: Performed By: #### CBC #### [facility] [address] [place] [address] Dr. Emmanuel Ortaosinophils/100 WBC (Bld)0.9 %Normal0.9-7.0[facility] Comment on above:Performed By: #### CBC #### [facility] [address] [place] [address] Dr. Emmanuel Ortarythrocyte distribution width (RBC) [Ratio]12.0 %Tzxeuw56.0-15.0 [facility] on above:Performed By: #### CBC #### [facility] [address] [place] [address] Dr. Emmanuel ChinHematocrit (Bld) [Volume fraction]43.2 %Wpyarf34.0-48.0The [facility] HospitalComment on above:Performed By: #### CBC #### [facility] [address] [place] [address] Dr. Emmanuel ChinHemoglobin (Bld) [Mass/Vol]14.2 g/hSXrhxjx98.0-16.0The [facility] HospitalComment on above:Performed By: #### CBC #### [facility] [address] [place] [address] Dr. Emmanuel Conner #0.01 10e3/ulNormal0.00-0.03The [facility] HospitalCommckenzie memorial [facility] on above:Performed By: #### CBC #### [facility] [address] [place] [address] Dr. Emmanuel Conner %0.2 %Normal0.0-0.5[facility] on above: Performed By: #### CBC #### [facility] [address] [place] [address] Dr. Emmanuel StylesH #1.3 103/ulNormal1.2-3.8The [facility] HospitalCommckenzie memorial [facility] on above:Performed By: #### CBC #### [facility] [address] [place] [address] Dr. Emmanuel Styleshocytes/100 WBC (Bld)23.2 %Xoqvln28.5-60.0The [facility] HospitalComment on above:Performed By: #### CBC #### [facility] [address] [place] [address] Dr. Emmanuel MartinezUAL DIFF REQNONormalThe Lutheran HospitalComment on above: Performed By: #### CBC #### [facility] [address] [address] [address] Emmanuel Tee (RBC) [Entitic mass]32.6 tiIslprb58.7-34.0The [facility] HospitalComment on above:Performed By: #### CBC #### [facility] [address] [place] [address] Dr. Emmanuel Tee (RBC) [Mass/Vol]32.9 g/pEWsetii07.9-35.2The [facility] HospitalComment on above:Performed By: #### CBC #### [facility] [address] [place] [address] Dr. Emmanuel Tee (RBC) [Entitic vol]99.1 fLCritically high81.0-99.0The [facility] HospitalComment on above:Performed By: #### CBC #### [facility] [address] [place] [address] Dr. Emmanuel Rea #0.5 103/ulNormal0.3-0.8The [facility] HospitalComment on above:Performed By: #### CBC #### [facility] [address] [place] [address] Dr. Emmanuel Alstonocytes/100 WBC (Bld)9.8 %Normal1.7-12.0[facility] Comment on above:Performed By: #### CBC #### [facility] [address] [place] [address] Dr. Emmanuel Ahumada #3.6 103/ulNormal1.4-6.5The [facility] HospitalComment on above:Performed By: #### CBC #### [facility] [address] [place] [address] Dr. Emmanuel Andersonutrophils/100 WBC (Bld)65.7 %Ovxhae69.0-75.0The [facility] HospitalComment on above:Performed By: #### CBC #### [facility] [address] [place] [address] Dr. Emmanuel Monetlet mean volume (Bld) [Entitic vol]10.2 fLNormal9.5-13.5The [facility] HospitalComment on above:Performed By: #### CBC #### [facility] [address] [place] [address] Dr. Emmanuel ChinPLT134 103/ulCritically lwt091-638Bvf Luther[facility] HospitalComment on above:Performed By: #### CBC #### [facility] [address] [place] [address] Dr. Emmanuel ChinRBC4.36 106/ulNormal4.20-5.40The [facility] HospitalComment on above:Performed By: #### CBC #### [facility] [address] [place] [address] Dr. Emmanuel ChinWBC5.4 103/ulNormal4.0-11.0The [facility] HospitalComment on above: Performed By: #### CBC #### [facility] [address] [place] [address] Dr. Emmanuel Navarro PROFILEon 15-67-1557Qsivili [Mass/Vol]4.0 g/dLNormal3.5-5.0 The [facility] HospitalComment on above:Performed By: #### LIVER, CARB, BMP #### [facility] [address] [place] [address] Dr. Emmanuel ChinAlbumin/Globulin [Mass ratio]1.0 {ratio}NormalThe Lutheran HospitalComment on above:Performed By: #### LIVER, CARB, BMP #### [facility] [address] [place] [address] Dr. Emmanuel Kelley [Catalytic activity/Vol]59 U/JQrsrsf51-862Bgr [facility] Centerment on above:Performed By: #### LIVER, CARB, BMP #### [facility] [address] [place] [address] Dr. Emmanuel Escalante [Catalytic activity/Vol]22 U/LNormal9-52The [facility] on above:Performed By: #### LIVER, CARB, BMP #### [facility] [address] [place] [address] Dr. Yilan ChangAST [Catalytic activity/Vol]17 U/ZAitidg25-14TdoAdena Health SystemComment on above:Performed By: #### LIVER, CARB, BMP #### [facility] [address] [address] [address] Emmanuel AlanisI, CONJUGATED0.1 mg/dLNormal0.0-0.3TPremier Health Comment on above:Performed By: #### LIVER, CARB, BMP #### [facility] [address] [place] [address] Dr. Emmanuel ChinBilirubin [Mass/Vol]0.3 mg/dLNormal0.2-1.3TPremier Health Comment on above:Performed By: #### LIVER, CARB, BMP #### [facility] [address] [place] [address] Dr. Emmanuel ChinGlobulin (S) [Mass/Vol]3.9 g/dLNormalThe [facility] HospitalComment on above:Performed By: #### LIVER, CARB, BMP #### [facility] [address] [place] [address] Dr. Emmanuel ChinProtein [Mass/Vol]7.9 g/dLNormal6.1-8.2[facility] Comment on above:Performed By: #### LIVER, CARB, BMP #### [facility] [address] [place] [address] Dr. Emmanuel ChinPROF CHEM 8 (BAS METB)on 90-70-0477Mzlin gap [Moles/Vol]10.3 mmol/LNormalAdena Health SystemComment on above:Performed By: #### LIVER, CARB, BMP #### [facility] [address] [place] [address] Dr. Emmanuel ChinCalcium [Mass/Vol]8.9 mg/dLNormal8.4-10.2[facility] Comment on above:Performed By: #### LIVER, CARB, BMP #### [facility] [address] [place] [address] Dr. Emmanuel ChinChloride [Moles/Vol]105 mmol/UAcyvne87-056QjbAdena Health System Comment on above:Performed By: #### LIVER, CARB, BMP #### [facility] [address] [address] [address] Emmanuel ChinCO2 [Moles/Vol]30.5 mmol/LCritically high22.0-30.0The [facility] HospitalComment on above:Performed By: #### LIVER, CARB, BMP #### [facility] [address] [address] [address] Emmanuel ChinCreatinine [Mass/Vol]0.52 mg/dLNormal0.52-1.04[facility] SystemComment on above:Performed By: #### LIVER, CARB, BMP #### [facility] [address] [address] [address] Emmanuel OrtaGFR-AF SERBIAN>60Normal>=60The [facility] HospitalComment on above:Performed By: #### LIVER, CARB, BMP #### [facility] [address] [place] [address] Dr. Emmanuel OrtaGFR-NON AF SERBIAN>60Normal>=60The [facility] Centerment on above:Performed By: #### LIVER, CARB, BMP #### [facility] [address] [address] [address] Emmanuel ChinGlucose [Mass/Vol]82 mg/rTFqvtzc61-805OzsAdena Health System Comment on above:Performed By: #### LIVER, CARB, BMP #### [facility] [address] [address] [address] Emmanuel ChinPotassium [Moles/Vol]3.8 mmol/LNormal3.4-5.0[facility] Comment on above:Performed By: #### LIVER, CARB, BMP #### [facility] [address] [address] [address] Emmanuel ChinSodium [Moles/Vol]142 mmol/WMuzuev496-843QeuAdena Health System Comment on above:Performed By: #### LIVER, CARB, BMP #### [facility] [address] [address] [address] Emmanuel ChinUrea nitrogen [Mass/Vol]11.0 mg/dLNormal7.0-17.0The [facility] HospitalComment on above:Performed By: #### LIVER, CARB, BMP #### [facility] [address] [place] [address] Dr. Emmanuel ChinUrea nitrogen/Creatinine [Mass ratio]21.2 mg/mgNormalThe [facility] HospitalComment on above:Performed By: #### LIVER, CARB, BMP #### [facility] [address] [address] [address] Emmanuel ChinTEGRETOLon 27-08-7840YJXBLFDM9.0 ug/mLNormal4.0-12.0The Lutheran HospitalComment on above:Performed By: #### LIVER, CARB, BMP #### [facility] [address] [place] [address] Dr. Emmanuel Chin Vital Signs Date TimeVital SignValuePerforming ZgalceppsUjdcavta76-97-6038 15:07-0400Body .5 cmNicholas Brown DPM Work Phone: [phone]10-09-2025 15:07-0400Body mass index (BMI) [Ratio]21.95 kg/f5Gfgxotpw Brown DPM Work Phone: [phone]10-09-2025 15:07-0400Body hbydoa37.43 kgNicholas Brown DPM Work Phone: [phone])[address]10-09-2025 15:07-0400Respiratory rate16 /minNicholas Brown DPM Work Phone: [phone] [place], [place] 7960207-10-2025 15:32-0400Body .5 cmNicholas Brown DPM Work Phone: [phone])[address]07-10-2025 15:32-0400Body mass index (BMI) [Ratio]21.95 kg/i1Txkpbmlu Brown DPM Work Phone: [phone] [place], [place] [address]Wkjygxjoqe64-52-7292 15:32-0400Body pifshi24.43 kgNicholas Brown DPM Work Phone: [phone])[address]07-10-2025 15:32-0400Respiratory rate18 /minCynthiakushal Salcido DPM Work Phone: [phone] [place], [place] [address]Zfzqpxjesu11-16-4106 16:24-0400Body djgagt206.5 cmCynthiakushal Salcdio DPM Work Phone: [phone] [place], [place] [address]Awqwarqivr12-09-8451 16:24-0400Body mass index (BMI) [Ratio]21.95 kg/a0Hcygwdsb Omari DPM Work Phone: [phone] [place], [place] [address]Rtspeuxgrw40-08-0560 16:24-0400Body avhlxt98.43 kgCynthiakushal Salcido DPM Work Phone: [phone])[facility] [place], [place] [address]Uozorptxbj73-69-4365 16:24-0400Respiratory rate16 /minCynthiakushal Salcido DPM Work Phone: [phone] [place], [place] [address]Ydsmybujjt39-29-4863 16:03-0500Body cm Jay Salcido DPM Work Phone: [phone] [place], [place] [address]Awrtbtdwfz56-55-7804 16:03-0500Body mass index (BMI) [Ratio]20.37 kg/z5Rtttxpjv Brown DPM Work Phone: [phone])[facility] [place], [place] [address]Ihlkgbsxrk34-34-1153 16:03-0500Body hhaouh73.16 kgCynthiakushal Salcido DPM Work Phone: [phone] [place], [place] [address]Emtlbeqsvd00-77-7988 16:03-0500Diastolic blood dpitnwqg82 mm[Hg]Jay Salcido DPM Work Phone: [phone] [place], [place] [address]Qboqtwummy31-90-8231 16:03-0500Heart rate80 /min Jay Salcido DPM Work Phone: [phone] [place], [place] [address]Izjasplzaz55-80-0949 16:03-0500Systolic blood ikxplwny964 mm[Hg]Jay Salcido DPM Work Phone: [phone] [place], [place] [address]Gidjifsftw77-48-4461 16:18-0500Body gooorn687 cm Jay Salcido DPM Work Phone: [phone] [place], [place] [address]Htvmabzcil86-37-4161 16:18-0500Body mass index (BMI) [Ratio]20.37 kg/l7MjdndojiJay Salcido DPM Work Phone: [facility] HospitalAzvgoqsyzw26-11-3647 16:18-0500Body druvhh08.16 kgJay Salcido DPM Work Phone: [facility] HospitalXxhwcnwosr32-66-4588 16:18-0500Diastolic blood vqrgdrom90 mm[Hg]Jay Salcido DPM Work Phone: [place] [address]Vjqhjfmyzh83-17-8303 16:18-0500Heart rate82 /min Jay Salcido DPM Work Phone: [facility] HospitalUuosthywpr58-39-3880 16:18-0500Systolic blood cyythljx002 mm[Hg]Jay Salcido DPM Work Phone: [facility] HospitalGarfnrrvqb06-35-9505 10:53-0400Body aejioo247 cm Coby Peralta WELL SERVICING RIG OPERATOR Work Phone: [facility] HospitalSatarzzxwu13-72-9308 10:53-0400Body mass index (BMI) [Ratio]20.19 kg/h3Jcwmlr Marcemor WELL SERVICING RIG OPERATOR Work Phone: [facility] HospitalTnrapmunqa26-66-6593 10:53-0400Body oodhoc43.71 kgMarjlaron Marcemor WELL SERVICING RIG OPERATOR Work Phone: [facility] HospitalThnjozbqnz39-96-3448 10:53-0400Diastolic blood gupjqpch37 mm[Hg]Coby Vincentr WELL SERVICING RIG OPERATOR Work Phone: [facility] HospitalJvfyzjlzge87-74-4141 10:53-0400Systolic blood ncmufodp930 mm[Hg]Coby Vincentr WELL SERVICING RIG OPERATOR Work Phone: [facility] HospitalWjhxwxndug37-86-8602 16:02-0400Body gceehp547 cm Jay Salcido DPM Work Phone: [facility] HospitalJlajyafpnb03-55-7116 16:02-0400Body mass index (BMI) [Ratio]22.14 kg/z3HvavussmJay Salcido DPM Work Phone: [facility] HospitalBqlfopdhex42-28-6289 16:02-0400Body abgsxx01.7 kg Jay Salcido DPM Work Phone: [facility] Jmctqwiewk15-14-6165 16:02-0400Diastolic blood tlopaflo68 mm[Hg]Jay Salcido DPM Work Phone: [facility] Avawicsiet32-93-9877 16:02-0400Heart rate81 /min Jay Salcido DPM Work Phone: [facility] Zsqcnyogur17-38-4843 16:02-0400Systolic blood mm[Hg]Jay Salcido DPM Work Phone: [facility] Encounters Encounter DateEncounter TypeCare ProviderFacilityStart: 08-13-2025 End: 62-85-2616Giphenc encounter procedureJay Salcido DPM Work Phone: [facility] CI PODIATRYComment on above:Pain due to onychomycosis of toenails of both feet (Primary Dx)Start: 08-13-2025 End: 91-61-0037dtrggzwytjWNGTBDCS Ora SALCIDONot AvailableStart: 08-13-2025 End: 45-43-0930Cgzlvy flowsheetNicglenda Salcido DPM Work Phone: [facility] CI PODIATRYStart: 08-13-2025 End: 26-90-7838Jtyiwf flowsheetNicbrittaneyas A Brown DPM Work Phone: [facility] CI PODIATRYStart: 06-17-2025 End: 50-83-2611gcjwjgobmqITDBAD A LEHMANNFacility:FT FM BellevueStart: 05-14-2025 End: 95-36-7806Ynqknlg encounter procedureJay Salcido DPM Work Phone: [facility] CI PODIATRYComment on above:Pain due to onychomycosis of toenails of both feet (Primary Dx)Start: 05-14-2025 End: 53-91-1362ndzgowzlwjUSVISBSM Ora BROWNNot AvailableStart: 05-14-2025 End: 53-78-1718Yddxtb flowsheetNicholas A Brown DPM Work Phone: [facility] CI PODIATRYStart: 05-14-2025 End: 50-17-5767Bkuvgh flowsheetNicholas A Brown DPM Work Phone: [facility] CI PODIATRYStart: 05-12-2025 End: 84-55-9644Bvxkgz outpatient visit 15 minutesNatalie A Felter CLINICAL PHYSICIAN ASSISTANT-ALUMINUM SHEET CUTTER Work Phone: [facility] SWS DERMComment on above:Melanocytic nevus of trunk (Primary Dx); Melanocytic nevus of right lower extremity; Melanocytic nevus of left lower extremity; Melanocytic nevus of upper extremity, unspecified laterality; Seborrheic keratosis; Scar conditions and fibrosis of skinStart: 05-12-2025 End: 81-87-4100pnfmgytaomYFCLVIA A FELTERNot AvailableStart: 05-12-2025 End: 66-03-5036Tznaxh flowsheetNatalie A Felter CLINICAL PHYSICIAN ASSISTANT-ALUMINUM SHEET CUTTER Work Phone: [facility] DERMStart: 05-12-2025 End: 56-94-1852Hwsill flowsheetNatalie A Felter CLINICAL PHYSICIAN ASSISTANT-ALUMINUM SHEET CUTTER Work Phone: [facility] DERMStart: 02-19-2025 End: 33-49-0779Qoijkhg encounter procedureNicholas A Brown DPM Work Phone: [facility] CI PODIATRYComment on above:Pain due to onychomycosis of toenails of both feet (Primary Dx)Start: 02-19-2025 End: 86-25-3654btcdnuiyztGTXASQWT A BROWNNot AvailableStart: 02-19-2025 End: 20-63-1540Koxbbg flowsheetNicholas A Brown DPM Work Phone: noMS CI PODIATRYStart: 02-19-2025 End: 47-52-2448Oslwfy flowsheetNicholas A Brown DPM Work Phone: [facility] CI PODIATRYStart: 00-60-6364azlhhzzdjwVnqlkx E. RossFacility:FT FM ueStart: 01-22-2025 End: 42-68-3012hboiaodsuaLefcvq Jc AyalaFacility:[facility] tart: 01-13-2025 End: 40-07-9758Yzfumtlqt encounterAndcecilia Ellie SUSHIL MINDYUSKYStart: 01-13-2025 End: 04-14-7689ebvnegrhxnRAQWKK ABRAHAMNot AvailableStart: 12-11-2024 End: 58-70-4869Prnfcfb encounter procedureNicholas A Brown DPM Work Phone: noMS CI PODIATRYComment on above:Pain due to onychomycosis of toenails of both feet (Primary Dx)Start: 12-11-2024 End: 72-84-8358rzsvccrvfeKGHZMXIC A BROWNNot AvailableStart: 12-11-2024 End: 47-48-7442Fuorkn flowsheetNicholas A Brown DPM Work Phone: noMS CI PODIATRYStart: 12-11-2024 End: 16-04-0009Nuzcxe flowsheetNicholas A Brown DPM Work Phone: noMS CI PODIATRYStart: 10-23-2024 End: 23-84-5412AhttacBwsunbhn Tony NOGUEIRA PCF NEUROLOGYComment on above:Seizure (CMS/HCC)Start: 10-14-2024 End: 56-02-5849ydpyhlftryAdfaka Jc AyalaFacility:[facility] ueStart: 09-18-2024 End: 26-87-1725Rhjhsyu encounter procedureNicholas A Brown DPM Work Phone: noMS CI PODIATRYComment on above:Pain due to onychomycosis of toenails of both feet (Primary Dx)Start: 09-18-2024 End: 53-73-0843bqrqetvuwqYJNSFGKY A BROWNNot AvailableStart: 09-18-2024 End: 77-99-0244Qvttwh flowsheetNicholas A Brown DPM Work Phone: noMS CI PODIATRYStart: 09-18-2024 End: 22-59-4038Lezlgy flowsSalvador Salcido DPM Work Phone: [facility] CI PODIATRYStart: 07-28-2024 End: 18-93-6976Ahfthx flowsLuciana Peralta WELL SERVICING RIG OPERATOR Work Phone: [facility] ROUTEStart: 07-28-2024 End: 01-29-4105Hndzgv flowsheetCoby Peralta WELL SERVICING RIG OPERATOR Work Phone: [facility] ROUTEStart: 07-28-2024 End: 89-25-9053Yhsfkw outpatient visit 25 minutesAngelaron Peralta WELL SERVICING RIG OPERATOR Work Phone: [facility] ROUTEComment on above:REM sleep behavior disorder (Primary Dx); Mental disability (CMS/HCC); Sleep-wake cycle disorder; Convulsions, unspecified convulsion type (CMS/HCC); Behavioral and emotional 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; Seizure disorder (CMS/HCC); Seizure (CMS/HCC)Start: 07-22-2024 End: 13-93-0964ytogrpzjbeYqdkvf Jc RossFacility:FT FM BellevueStart: 06-26-2024 End: 70-31-8947Zwdjgfh encounter procedureJay Salcido DPM Work Phone: [facility] CI PODIATRYComment on above:Onychomycosis (Primary Dx); Toe pain, bilateralStart: 06-26-2024 End: 13-54-9695Nqoydr Yogesh Salcido DPM Work Phone: [facility] CI PODIATRYStart: 06-26-2024 End: 45-27-7199Ybmumt flowsSalvador Salcido DPM Work Phone: [facility] CI PODIATRYStart: 10-31-2021 End: 21-38-0893hnqhsgzilxIF TOM DANNERFacility:H1 Plan of Treatment DateCare ActivityDetailAuthorStart: 05-13-2026 End: 58-55-3181Bvhivfc encounter procedureNOMS SWS DERMStart: 01-21-2026 ambulatoryAmbulatoryFacility:FT BellevueStart: 08-13-2025 End: 30-32-3324Qlrmxge encounter procedureNOMS CI PODIATRYComment on above:Pain due to onychomycosis of toenails of both feet (Primary Dx)Start: 07-27-2025 ambulatoryAmbulatoryFacility:FT BellevueStart: 07-21-2025 End: 30-82-6637Vlbljfo encounter /16/2025 9:45 AM EDT Office Visit GIANNA GALVAN [address] [place] [address] AbrahamTom treviño, [address] [place] [address] GIANNA PULIDOUEStart: 14-39-6691Uclvzjhsq vaccinationInfluenza Vaccine (#1) [facility] HealthcareStart: 05-14-2025 End: 43-01-7322Qkcwlhc encounter procedureNOMS CI PODIATRYComment on above:Pain due to onychomycosis of toenails of both feet (Primary Dx)Start: 05-12-2025 End: 17-01-9207Jqlwilb encounter procedureNOMS SWS DERMComment on above:Arrived Start: 04-29-2025 End: 82-98-7984Lprecun encounter bncglhjye35/25/2025 2:10 PM EDT Office Visit [facility] [address] [place] [address] Gloria Amaya APRN-ALUMINUM SHEET CUTTER [address] [place] [address] NOMS SWS DERMStart: 02-19-2025 End: 28-07-7042Jqfnmes encounter procedureNOMS CI PODIATRYComment on above:Pain due to onychomycosis of toenails of both feet (Primary Dx)Start: 01-13-2025 End: 41-66-9564Hikmkco encounter procedureNOMS COLE STATE ROUTEStart: 12-11-2024 End: 03-69-5005Dzmhxia encounter rqzxfomoz41/06/2025 4:00 PM EST Procedure Visit [facility] [address] [place] [address] Jay Salcido, DPM [address] [address] Pain due to onychomycosis of toenails of both feet (Primary Dx)[facility] CI PODIATRYComment on above:Pain due to onychomycosis of toenails of both feet (Primary Dx)Start: 12-04-2024 End: 42-58-2467Ppixhot encounter xygepabkx77/30/2025 4:00 PM EST Procedure Visit [facility] [address] [place] [address] Jay Salcido DPM [address] [address] NOM[facility] CI PODIATRYStart: 09-04-2024 End: 49-16-7043Hxvcynh encounter ovfryouaw74/31/2024 4:30 PM EDT Procedure Visit [facility] [address] [place] [address] Jay Salcido, DPM [address] [address] N[facility] CI PODIATRYStart: 07-28-2024 End: 67-39-0929Qzejjfl encounter procedureNOCOMMUNITY REGIONAL [facility] ROUTEComment on above:ArrivedStart: 16-92-9575Zmrksczkk vaccinationInfluenza Vaccine (#1)[facility] HealthcareStart: 49-57-9399Cfdikfbhw for malignant neoplasm of breastMammogram [facility] HealthcareStart: 85-10-2926Ztecggfrb for malignant neoplasm of cervixNOMS HealthcareStart: 84-98-3085Spdhnpfsx for malignant neoplasm of cervixPap Smear [facility] Immunizations Immunization DateImmunizationNotesCare EuyldrdjYbtzyjiy94-80-3784yvcgmmedi virus vaccine, unspecified formulationYeealiwei Amaya APRN-ALUMINUM SHEET CUTTER Work Phone: [facility] HospitalRbxumpofzi61-32-1906zpbylwjue virus vaccine, unspecified formulationCynthiakushal Salcido DPM Work Phone: [facility] Payers DatePayer CategoryPayerPolicy ID2019Medicaid [id number] 2016Medicare [id number] 2.0.1.073242.3.57[id number] 2.0.1.658087.3.57[id number] 2.0.1.009143.3.57[id number] 2.0.1.662890.3.57[id number] 2.0.1.686635.3.57[id number] 2..1.177082.3.57[id number] 2.0.1.246101.3.57[id number] 2.0.1.935471.3.57[id number] 2.840.1.811287.3.579.[id number] 2.840.1.692240.3.579.[id number] 2.16.840.1.837390.3.57[id number] 2.16.840.1.835143.3.57[id number] 2.16.840.1.078465.3.57[id number] 2.16.840.1.935421.3.57[id number] 2.16.840.1.739949.3.57[id number] 2.16.840.1.067475.3.579.2.1259 [id number] 1959Medicare [id number] Social History DateTypeDetailFacilityStart: 98-96-3411Xuyhssw smoking status NHISNever smoked tobaccoNOCO HealthcareStart: 06-80-1336Ffsctlw use and exposureSmokeless tobacco non-userNOCO HealthcareStart: 09-18-2024 End: 12-70-3732Uuhdtylnf beverage intakeLifetime non-drinker (finding)[facility] HealthcareStart: 09-18-2024 End: 63-45-0834Xkcdxqz of Social functionNOCO HealthcareStart: 09-18-2024 End: 49-99-4519Zzpydcl use panelNOCO HealthcareStart: 33-88-9507Pik assigned at birthNot on [facility] Clinical Notes 06-26-2024 to 08-13-2025 Note Date & BkupHqfgWlsedovn22-36-2197 History of Present illness Narrative* Jay Salcido, DPM - 08/13/2025 3:10 PM EDT Patient: Elver Penn : 1980 PCP: Jack Ayala MD SUBJECTIVE This is a 45 y.o. female that presents today with a CC of elongated, thick nails. Pt states nails have been elongated and thick for many years and cause pain with ambulation in shoegear. Pt has tried previous treatment with minimal relief. Pt presents today for nail care and treatment. Pt has hx of tinea pedis. 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 Allergies: No Known Allergies Past Medical History: Past Medical History: Diagnosis Date Angelman's syndrome (HCC) Convulsions (HCC) Mental disability Mental Retardation REM sleep behavior disorder Scoliosis Seizure (HCC) Medications: Current Outpatient Medications: carBAMazepine ER (Carbatrol) 200 MG 12 hr capsule, Take 1 capsule (200 mg) by mouth in the morning and 1 capsule (200 mg) before bedtime., Disp: 180 capsule, Rfl: 1 Linzess 72 MCG capsule, Take 72 mcg by mouth Daily, Disp: , Rfl: PHENobarbital (Luminal) 97.2 MG tablet, Take 1 tablet (97.2 mg) by mouth at bedtime R56.9, Disp: 90tablet, Rfl: 0 QUEtiapine (SEROquel) 25 MG tablet, 1-2 po q hs, Disp: 180 tablet, Rfl: 1 Social History: Social History Socioeconomic History Marital status: Unmarried Spouse name: Not on file Number of children: Not on file Years of education: Not on file Highest education level: Not on file Occupational History Not on file Tobacco Use Smoking status: Never Smokeless tobacco: Never Vaping Use Vaping status: Never Used Substance and Sexual Activity Alcohol use: Never Drug use: Never Sexual activity: Never Other Topics Concern Not on file Social History Narrative Not on file Social Drivers of Health Financial Resource Strain: Not on file Food Insecurity: Not on file Transportation Needs: Not on file Physical Activity: Not on file Stress: Not on file Social Connections: Not on file Intimate Partner Violence: Not on file Housing Stability: Not on file ROS: General: denies fever, chills, fatigue, malaise OBJECTIVE LE EXAM: DERM: Elongated thick yellow crumbly nails digits 1 through 10. Positive hair growth b/l feet. VASC: Positive palpable pedal pulses bilaterally NEURO: Gross sensation intact to bilateral feet ORTHO: Positive pain on palpation to toenails of the left 1,2,3,4,5 toes and right 1,2,3,4,5 toes ASSESSMENT 1. Pain due to onychomycosis of toenails of both feet PLAN Discussed proper foot care with patient today. Debride nails in length and thickness digits 1 through 10 Jay Salcido DPM documented in this encounterWright Memorial HospitalGstmuqxtvl46-64-3044 History of Present illness Narrative* Jay Salcido DPM - 05/14/2025 3:30 PM EDT Patient: Elver Penn : 1980 PCP: Jack Ayala MD SUBJECTIVE This is a 44 y.o. female that presents today with a CC of elongated, thick nails. Pt states nails have been elongated and thick for many years and cause pain with ambulation in shoegear. Pt has tried previous treatment with minimal relief. Pt presents today for nail care and treatment. Pt has hx of tinea pedis. 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 Allergies: No Known Allergies Past Medical History: Past Medical History: Diagnosis Date Angelman's syndrome (HCC) Convulsions (HCC) Mental disability Mental Retardation REM sleep behavior disorder Scoliosis Seizure (HCC) Medications: Current Outpatient Medications: carBAMazepine ER (Carbatrol) 200 MG 12 hr capsule, Take 1 capsule (200 mg) by mouth in the morning and 1 capsule (200 mg) before bedtime., Disp: 180 capsule, Rfl: 1 Linzess 72 MCG capsule, Take 72 mcg by mouth Daily, Disp: , Rfl: PHENobarbital (Luminal) 97.2 MG tablet, Take 1 tablet (97.2 mg) by mouth at bedtime R56.9, Disp: 90tablet, Rfl: 0 QUEtiapine (SEROquel) 25 MG tablet, 1-2 po q hs, Disp: 180 tablet, Rfl: 1 Social History: Social History Socioeconomic History Marital status: Unmarried Spouse name: Not on file Number of children: Not on file Years of education: Not on file Highest education level: Not on file Occupational History Not on file Tobacco Use Smoking status: Never Smokeless tobacco: Never Vaping Use Vaping status: Never Used Substance and Sexual Activity Alcohol use: Never Drug use: Never Sexual activity: Never Other Topics Concern Not on file Social History Narrative Not on file Social Drivers of Health Financial Resource Strain: Not on file Food Insecurity: Not on file Transportation Needs: Not on file Physical Activity: Not on file Stress: Not on file Social Connections: Not on file Intimate Partner Violence: Not on file Housing Stability: Not on file ROS: General: denies fever, chills, fatigue, malaise OBJECTIVE LE EXAM: DERM: Elongated thick yellow crumbly nails digits 1 through 10. Positive hair growth b/l feet. VASC: Positive palpable pedal pulses bilaterally NEURO: Gross sensation intact to bilateral feet ORTHO: Positive pain on palpation to toenails of the left 1,2,3,4,5 toes and right 1,2,3,4,5 toes ASSESSMENT 1. Pain due to onychomycosis of toenails of both feet PLAN Discussed proper foot care with patient today. Debride nails in length and thickness digits 1 through 10 Jay Salcido DPM documented in this encounterWright Memorial HospitalQkddwjvfzk46-25-3830 History of Present illness Narrative* Gloria Amaya APRN-ALUMINUM SHEET CUTTER - 05/12/2025 2:20 PM EDT Skin Check Location: Patient requests a full body skin examination Dermatologic history: no history of skin cancer, family history of melanoma Last visit: 1 year ago Established patient All pertinent medical history, medications, and allergies were reviewed. General Exam: alert, well appearing Accompanied by Mom Areas not examined despite medical recommendation: Scalp, Examined Right leg Examined Head, Face Examined Left leg Examined Neck Examined Right foot Examined Chest Examined Patient kept bra on Left foot Examined Back Examined Buttocks Examined Patient kept underwear on Abdomen Examined Digits,nails: Examined Right arm Examined Left arm Examined Lymphatics: Not examined Hands Examined Skin Exam 1. MELANOCYTIC NEVUS OF TRUNK (2) Abdomen (Lower Torso, Anterior), Chest (Upper Torso, Anterior) Scattered benign appearing, regular brown to light brown melanocytic papules and macules with similar morphology Counseled regarding these benign growths. Rarely, a nevus can develop into malignant melanoma, so any changing nevi should be promptly re-evaluated. 2. MELANOCYTIC NEVUS OF RIGHT LOWER EXTREMITY Right Leg Scattered benign appearing, regular brown to light brown melanocytic papules and macules with similar morphology Counseled regarding these benign growths. Rarely, a nevus can develop into malignant melanoma, so any changing nevi should be promptly re-evaluated. 3. MELANOCYTIC NEVUS OF LEFT LOWER EXTREMITY Left Leg Scattered benign appearing, regular brown to light brown melanocytic papules and macules with similar morphology Counseled regarding these benign growths. Rarely, a nevus can develop into malignant melanoma, so any changing nevi should be promptly re-evaluated. 4. MELANOCYTIC NEVUS OF UPPER EXTREMITY, UNSPECIFIED LATERALITY (2) Left Arm, Right Arm Scattered benign appearing, regular brown to light brown melanocytic papules and macules with similar morphology Counseled regarding these benign growths. Rarely, a nevus can develop into malignant melanoma, so any changing nevi should be promptly re-evaluated. 5. SEBORRHEIC KERATOSIS Torso - Posterior (Back) Stuck on verrucous, variably pigmented papules and plaques. Patient was counseled regarding these benign growths. Removal is normally not necessary, but they may be removed if they are symptomatic or for cosmetic reasons. 6. SCAR CONDITIONS AND FIBROSIS OF SKIN Right Thigh - Anterior Hypopigmentated macule Favoring a scar. Mother reports patient did have a history of chicken pox. No further treatment is necessary. Next Visit: 1 year skin exam documented in this encounterWright Memorial HospitalGybhwxqyvo09-84-2034 History of Present illness Narrative* Jay Salcido, LINDSAY - 02/19/2025 4:30 PM EDT Patient: Elver Cherryehler : 1980 PCP: Jack Ayala MD SUBJECTIVE This is a 44 y.o. female that presents today with a CC of elongated, thick nails. Pt states nails have been elongated and thick for many years and cause pain with ambulation in shoegear. Pt has tried previous treatment with minimal relief. Pt presents today for nail care and treatment. Pt has hx of tinea pedis. 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 Allergies: No Known Allergies Past Medical History: Past Medical History: Diagnosis Date Angelman's syndrome (CMS/HCC) Convulsions (CMS/HCC) Mental disability (CMS/HCC) Mental Retardation REM sleep behavior disorder Scoliosis Seizure (CMS/HCC) Medications: Current Outpatient Medications: carBAMazepine ER (Carbatrol) 200 MG 12 hr capsule, Take 1 capsule (200 mg) by mouth in the morning and 1 capsule (200 mg) before bedtime., Disp: 180 capsule, Rfl: 1 Linzess 72 MCG capsule, Take 72 mcg by mouth Daily, Disp: , Rfl: PHENobarbital (Luminal) 97.2 MG tablet, Take 1 tablet (97.2 mg) by mouth at bedtime R56.9, Disp: 90tablet, Rfl: 0 QUEtiapine (SEROquel) 25 MG tablet, 1-2 po q hs, Disp: 180 tablet, Rfl: 1 Social History: Social History Socioeconomic History Marital status: Unmarried Spouse name: Not on file Number of children: Not on file Years of education: Not on file Highest education level: Not on file Occupational History Not on file Tobacco Use Smoking status: Never Smokeless tobacco: Never Vaping Use Vaping status: Never Used Substance and Sexual Activity Alcohol use: Never Drug use: Never Sexual activity: Never Other Topics Concern Not on file Social History Narrative Not on file Social Drivers of Health Financial Resource Strain: Not on file Food Insecurity: Not on file Transportation Needs: Not on file Physical Activity: Not on file Stress: Not on file Social Connections: Not on file Intimate Partner Violence: Not on file Housing Stability: Not on file ROS: General: denies fever, chills, fatigue, malaise OBJECTIVE LE EXAM: DERM: Elongated thick yellow crumbly nails digits 1 through 10. Positive hair growth b/l feet. VASC: Positive palpable pedal pulses bilaterally NEURO: Gross sensation intact to bilateral feet ORTHO: Positive pain on palpation to toenails of the left 1,2,3,4,5 toes and right 1,2,3,4,5 toes ASSESSMENT 1. Pain due to onychomycosis of toenails of both feet PLAN Discussed proper foot care with patient today. Debride nails in length and thickness digits 1 through 10 Jay Salcido DPM documented in this encounterWright Memorial [id number] Telephone encounter Note* Telephone Encounter - Racquel Hagen NP - 01/13/2025 1:06 PM EDT I called the patient's mother Sonali and advised her that no changes were made to the carbamazepine dose during the patient's visit. Medication dose clarified with the patients mother. The patientis currently taking 200 mg BID. The incorrect dose was removed from the patients medication list and Leslie at the pharmacy was made aware. The patient's mother denies filling or administering the 100 mg dose. All questions answered. [facility] [employer] Work Phone: [phone] Miscellaneous Notes* Telephone Encounter - Racquel Hagen NP - 01/13/2025 1:06 PM EDT I called the patient's mother Sonali and advised her that no changes were made to the carbamazepine dose during the patient's visit. Medication dose clarified with the patients mother. The patientis currently taking 200 mg BID. The incorrect dose was removed from the patients medication list and Leslie at the pharmacy was made aware. The patient's mother denies filling or administering the 100 mg dose. All questions answered. * Telephone Encounter - Tom Rosario DO - 01/13/2025 12:42 PM EDT I sent what was in the chart. Please double check what dose she is taking and have her stay at thatdose and then update the med list. thanks * Telephone Encounter - Arron Argueta MA - 01/13/2025 11:10 AM EDT Patients mother calls in asking if her carbamazepine dose was changed. She states she has been on just the 200 mg BID but noticed it looked like 100 mg was also added but never discussed. She wanted to see if it was an error or if this was increased. Please advise. documented in this encounterDon [place] [id number] Telephone encounter Note* Telephone Encounter - Tom Rosario DO - 01/13/2025 12:42 PM EDT I sent what was in the chart. Please double check what dose she is taking and have her stay at thatdose and then update the med list. thanks [facility] [id number] Telephone encounter Note* Telephone Encounter - Arron Argueta MA - 01/13/2025 11:10 AM EDT Patients mother calls in asking if her carbamazepine dose was changed. She states she has been on just the 200 mg BID but noticed it looked like 100 mg was also added but never discussed. She wanted to see if it was an error or if this was increased. Please advise. [facility] [id number] History of Present illness Narrative* Jay Salcido DPM - 12/11/2024 4:00 PM EST Images from the original note were not included. Patient: Elver Penn : 1980 PCP: Jack Ayala MD SUBJECTIVE This is a 44 y.o. female that presents today with a CC of elongated, thick nails. Pt states nails have been elongated and thick for many years and cause pain with ambulation in shoegear. Pt has tried previous treatment with minimal relief. Pt presents today for nail care and treatment. 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 Do not crush or chew. ., Disp: , Rfl: carBAMazepine ER (Carbatrol) 200 MG 12 hr capsule, Take 1 capsule (200 mg) by mouth in the morning and 1 capsule (200 mg) before bedtime., Disp: 180 capsule, Rfl: 1 Linzess 72 MCG capsule, Take 72 mcg by mouth Daily, Disp: , Rfl: PHENobarbital (Luminal) 97.2 MG tablet, Take 1 tablet (97.2 mg) by mouth at bedtime R56.9, Disp: 90tablet, Rfl: 0 QUEtiapine (SEROquel) 25 MG tablet, Take 1 tablet (25 mg) by mouth at bedtime, Disp: 90 tablet, Rfl: 1 Social History: Social History Socioeconomic History Marital status: Unmarried Spouse name: Not on file Number of children: Not on file Years of education: Not on file Highest education level: Not on file Occupational History Not on file Tobacco Use Smoking status: Never Smokeless tobacco: Never Vaping Use Vaping status: Never Used Substance and Sexual Activity Alcohol use: Never Drug use: Never Sexual activity: Never Other Topics Concern Not on file Social History Narrative Not on file Social Drivers of Health Financial Resource Strain: Not on file Food Insecurity: Not on file Transportation Needs: Not on file Physical Activity: Not on file Stress: Not on file Social Connections: Not on file Intimate Partner Violence: Not on file Housing Stability: Not on file ROS: General: denies fever, chills, fatigue, malaise Gastrointestinal: denies abdominal pain, ulcers, or changes in appetite or bowel habits OBJECTIVE LE EXAM: DERM: Elongated thick yellow crumbly nails digits 1 through 10. Positive hair growth b/l feet. VASC: Positive palpable pedal pulses bilaterally NEURO: Gross sensation intact to bilateral feet ORTHO: Positive pain on palpation to nails 1 through 10 ASSESSMENT 1. Pain due to onychomycosis of toenails of both feet PLAN Discussed proper foot care with patient today. Debride nails in length and thickness digits 1 through 10 Jay Salcido DPM Note generated by [employer] EMR/PM Software ([email or web address]) documented in this encounterWright Memorial [id number] Telephone encounter Note* Telephone Encounter - Veronica Cummins MA - 10/23/2024 10:33 AM EST Due 10/30 [facility] [id number] Miscellaneous Notes* Telephone Encounter - Veronica Cummins MA - 10/23/2024 10:33 AM EST Due 10/30 * Telephone Encounter - Jay Jimenez MA - 10/23/2024 9:14 AM EST The patient requests refill of phenobarbitol 07/28/2024 continue phenobarbital 97.2 mg po QHS Oarrs reviewed, due on 10/31/2024 documented in this encounterWright Memorial [id number] Telephone encounter Note* Telephone Encounter - Jay Jimenez MA - 10/23/2024 9:14 AM EST The patient requests refill of phenobarbitol 07/28/2024 continue phenobarbital 97.2 mg po QHS [facility]arrs reviewed, due on 10/31/2024 [facility] [id number] History of Present illness Narrative* Jay Salcido DPM - 09/18/2024 4:20 PM EST Images from the original note were not included. Patient: Elver Hassanler : 1980 PCP: Jack Ayala MD SUBJECTIVE This is a 44 y.o. female that presents today with a CC of elongated, thick nails. Pt states nails have been elongated and thick for many years and cause pain with ambulation in shoegear. Pt has tried previous treatment with minimal relief. Pt presents today for nail care and treatment. 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 Do not crush or chew. ., Disp: , Rfl: carBAMazepine ER (Carbatrol) 200 MG 12 hr capsule, Take 1 capsule (200 mg) by mouth in the morning and 1 capsule (200 mg) before bedtime., Disp: 180 capsule, Rfl: 1 Linzess 72 MCG capsule, Take 72 mcg by mouth Daily, Disp: , Rfl: PHENobarbital (Luminal) 97.2 MG tablet, Take 1 tablet (97.2 mg) by mouth at bedtime R56.9, Disp: 90tablet, Rfl: 0 QUEtiapine (SEROquel) 25 MG tablet, Take 1 tablet (25 mg) by mouth at bedtime, Disp: 90 tablet, Rfl: 1 Social History: Social History Socioeconomic History Marital status: Unmarried Spouse name: Not on file Number of children: Not on file Years of education: Not on file Highest education level: Not on file Occupational History Not on file Tobacco Use Smoking status: Never Smokeless tobacco: Never Vaping Use Vaping status: Never Used Substance and Sexual Activity Alcohol use: Never Drug use: Never Sexual activity: Never Other Topics Concern Not on file Social History Narrative Not on file Social Drivers of Health Financial Resource Strain: Not on file Food Insecurity: Not on file Transportation Needs: Not on file Physical Activity: Not on file Stress: Not on file Social Connections: Not on file Intimate Partner Violence: Not on file Housing Stability: Not on file ROS: General: denies fever, chills, fatigue, malaise Gastrointestinal: denies abdominal pain, ulcers, or changes in appetite or bowel habits OBJECTIVE LE EXAM: DERM: Elongated thick yellow crumbly nails digits 1 through 10. Positive hair growth b/l feet. VASC: Positive palpable pedal pulses bilaterally NEURO: Gross sensation intact to bilateral feet ORTHO: Positive pain on palpation to nails 1 through 10 ASSESSMENT 1. Pain due to onychomycosis of toenails of both feet PLAN Discussed proper foot care with patient today. Debride nails in length and thickness digits 1 through 10 Jay Salcido DPM Note generated by [employer] EMR/PM Software ([email or web address]) documented in this encounterWright Memorial [id number] History of Present illness Narrative* Coby Peralta, [employer] OPERATOR - 07/28/2024 11:00 AM EDT Images from the original note were not included. Chief Complaint Patient presents with Seizures Patient is here today for follow-up of lab work and seizure disorder. I am following the plan of care established by the physician who is present in the office today. Azalia Nicholson is here today with her mother. She denies any seizures. She is taking and tolerating her medications. Her mother states she will get up at 5am every morning. There are times where she will just sit up at night and look out the window. She is unsure if the Seroquel is helping much. She does need a refill on carbamazepine, phenobarbital, and seroquel. She did get recent labs that was ordered through her PCP. Past Medical History: Diagnosis Date Angelman's syndrome (CMS/HCC) Convulsions (CMS/HCC) Mental disability (CMS/HCC) Mental Retardation REM sleep behavior disorder Scoliosis Seizure (CMS/HCC) Past Surgical History: Procedure Laterality Date [place] POSTERIOR NON-SEGMENTAL INSTRUMENTATION Duarte Pastor SPINAL FIXATION SURGERY W/ IMPLANT scoliosis pastor replaced Family History Problem Relation Name Age of Onset Hypertension Mother Cancer Mother Melanoma Father Social History Tobacco Use Smoking status: Never Smokeless tobacco: Never Substance Use Topics Alcohol use: Never Allergies: Patient has no known allergies. General: No fever or chills HEENT: No nasal congestion or runny nose Pulmonary: No shortness of breath or cough Cardiovascular: No chest pain or palpitations GI: No nausea or vomiting : No dysuria or hematuria Musculoskeletal: No new aches or pains or muscle weakness Infectious: no recurrent fevers or infections Dermatologic: No rashes or skin lesions Neurologic: No new headaches or dizziness Vitals: 07/28/24 1053 BP: 100/62 Body mass index is 20.19 kg/m . weight: 114 lb Neurologic exam: General: Normal body habitus, cooperative, pleasant Mental status: Awake, alert to person only Recent and remote memory-MRDD Attention and concentration-inattentive Fund of knowledge -MRDD Does follow commands HEENT: NC/AT Cranial nerves: CN II: Visual stubbs full to confrontation. No loss of vision CN III, IV, : pupils equal round and reactive to light. Extraocular movements intact. No ptosis present. CN V: Facial sensation is normal. CN VII: Full and symmetric facial movement. CN VIII: Hearing is normal CN IX and X: Palate elevates symmetrically. CN XI: Shoulder shrug is normal bilaterally. CN XII: Tongue is midline without atrophy or fasciculation. Speech: Aphasia due to MRDD Pronator drift: RADHAMES Coordination: RADHAMES finger to nose and rapid alternating movements Sensory: Sensation is intact to light touch throughout four extremities. Motor: LUE 5/5 RUE 5/5 LLE 5/5 RLE 5/5 Tone: Contractures to bilateral hands, holds right arm up at side, no tremor, bradykinesia or rigidity DTR: Bilateral Biceps x Bilateral BR x Bilateral Patellar x Gait: unsteady Romberg's x Assessment/Plan Diagnoses and all orders for this visit: REM sleep behavior disorder Mental disability (CMS/HCC) Sleep-wake cycle disorder - QUEtiapine (SEROquel) 25 MG tablet; Take 1 tablet (25 mg) by mouth at bedtime Convulsions, unspecified convulsion type (CMS/HCC) Behavioral and emotional 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 Seizure disorder (CMS/HCC) - carBAMazepine ER (Carbatrol) 200 MG 12 hr capsule; Take 1 capsule (200 mg) by mouth in the morning and 1 capsule (200 mg) before bedtime. Seizure (CMS/HCC) - PHENobarbital (Luminal) 97.2 MG tablet; Take 1 tablet (97.2 mg) by mouth at bedtime R56.9 44 year-old female with MRDD and seizure disorder . She has not had any breakthrough seizures in quite some time on the current medications. Labs had been fairly good. WBC back in normal range, tegretol level a little under therapeutic, was normal last draw and there have been no medication changes. . She does have some REM behavior disorder and sleep cycle disorder. She automatically wakes up at 4 or 5 am pending clock/time change. She does go to dayhab/workshop 5 days/week. She will take a nap after her dayhab at times. Mom does try and limit this to 60 minutes. Mom is trying to keep her up until 9:30. Mother is aware of the black box warning with the Seroquel with increased risk of falls stroke and she has been tolerating well and they feel the risk is worth the benefit. During the week she gets 1/2 as she is too hard to get going in the am with a whole tab. When they travel in the summer she will get the whole tab as she needs it to sleep in the camper. Mother believes it may be losing effectiveness. . Review and summary of old records: Labwork 07/2023 BMP and LFTs unremarkable, CBC with Diff WBC 3.6, RBC 3.9, PLTs 124, abs lymphs 0.9,10/2021 WBC 5.4, PLTs 134, abs lymphs 1.3 to compare most recent, tegretol 5.4, phenobarb 18 06/27/2024 phenobarb 18, carbamazepine 3.3, CMP and CBC with diff slight variations, WBC 4.7, . . . Plan routine labwork and levels reviewed continue seroquel 25mg 1/2- 1 tabs po [...] were answered and they agreed with the treatmentplan. The patient is to call with any worsening of the condition or new symptoms. Return to clinic: 6 months documented in this encounterWright Memorial [id number] History of Present illness Narrative* Jay Salcido DPM - 06/26/2024 3:50 PM EDT Images from the original note were not included. Patient: Elver Penn : 1980 PCP: Jack Ayala MD SUBJECTIVE This is a 43 y.o. female that presents today with a CC of elongated, thick nails. Pt states nails have been elongated and thick for many years and cause pain with ambulation in shoegear. Pt has tried previous treatment with minimal relief. Pt presents today for nail care and treatment. 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 Do not crush or chew. ., Disp: , Rfl: carBAMazepine ER (Carbatrol) 200 MG 12 hr capsule, TAKE ONE CAPSULE BY MOUTH TWICE A DAY, Disp: 180capsule, Rfl: 1 PHENobarbital (Luminal) 97.2 MG tablet, Take 1 tablet (97.2 mg) by mouth at bedtime R56.9, Disp: 90tablet, Rfl: 0 QUEtiapine (SEROquel) 25 MG tablet, Take 25 mg by mouth at bedtime., Disp: , Rfl: Social History: Social History Socioeconomic History Marital status: Unmarried Spouse name: Not on file Number of children: Not on file Years of education: Not on file Highest education level: Not on file Occupational History Not on file Tobacco Use Smoking status: Never Smokeless tobacco: Never Vaping Use Vaping status: Never Used Substance and Sexual Activity Alcohol use: Never Drug use: Never Sexual activity: Never Other Topics Concern Not on file Social History Narrative Not on file Social Determinants of Health Financial Resource Strain: Not on file Food Insecurity: Not on file Transportation Needs: Not on file Physical Activity: Not on file Stress: Not on file Social Connections: Not on file Intimate Partner Violence: Not on file Housing Stability: Not on file ROS: General: denies fever, chills, fatigue, malaise Gastrointestinal: denies abdominal pain, ulcers, or changes in appetite or bowel habits OBJECTIVE LE EXAM: DERM: Elongated thick yellow crumbly nails digits 1 through 10. Positive hair growth b/l feet. VASC: Positive palpable pedal pulses bilaterally NEURO: Gross sensation intact to bilateral feet ORTHO: Positive pain on palpation to nails 1 through 10 ASSESSMENT 1. Onychomycosis 2. Toe pain, bilateral PLAN Discussed proper foot care with patient today. Debride nails in length and thickness digits 1 through 10 Jay Salcido DPM Note generated by [employer] EMR/PM Software (www.[employer]) documented in this encounterNOMS HealthcareEvaluation note* Diagnosis Pain due to onychomycosis of toenails of both feet- Primary documented [facility] this encounter [facility]* Diagnosis Onychomycosis- Primary Dermatophytosis of nail Toe pain, bilateral [facility] encounter [facility]* Diagnosis REM sleep behavior disorder- Primary Mental disability (CMS/HCC) Unspecified mental retardation Sleep-wake cycle disorder Circadian rhythm sleep disorder, unspecified Convulsions, unspecified convulsion type (CMS/HCC) Behavioral and emotional 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 Seizure disorder (CMS/HCC) Unspecified epilepsy without mention of intractable epilepsy [facility] encounter [facility]* Diagnosis Seizure (CMS/HCC) Other convulsions [facility]* Diagnosis Pain due to onychomycosis of toenails of both feet- Primary [facility]* Diagnosis Pain due to onychomycosis of toenails of both feet- Primary [facility]* Diagnosis Melanocytic nevus of trunk- Primary Benign neoplasm of skin of trunk, except scrotum Melanocytic nevus of right lower extremity Melanocytic nevus of left lower extremity Melanocytic nevus of upper extremity, unspecified laterality Seborrheic keratosis Scar conditions and fibrosis of skin Scar condition and fibrosis of skin Pain due to onychomycosis of toenails of both feet- Primary [facility]* Diagnosis Pain due to onychomycosis of toenails of both feet- Primary [facility] this encounter [facility] Summary Purpose Family History No Family History Records FoundNo Family History Records FoundNo Family History Records Found Advance Directives No Advanced Directives Records FoundNo Advanced Directives Records FoundNo Advanced Directives Records Found Additional Source Comments INFORMATION SOURCE (unrecogn ized section and content) DATE CREATED AUTHOR 11/06/2021 [facility] DATE CREATED AUTHOR AUTHOR'S ORGANIZ ATION 06/18/2025 [facility] DATE CREATED AUTHOR AUTHOR'S ORGANIZ ATION 08/16/2025 [facility] EPIC Care Teams (unrecognized sec tion and content) Team MemberRelationshipSpecialtyStart DateEnd Date Jack Ayala MD [address] [place] [address] PCP - GeneralFamily Medicine9/23/24Team MemberRelationshipSpecialtyStart DateEnd Date Jack Ayala MD [address] [place] [address] PCP - GeneralFamily Medicine07/28/24Team MemberRelationshipSpecialtyStart DateEnd Date Jack Ayala MD PCP - GeneralFamily Sgsdaugp15/28/23Team MemberRelationshipSpecialtyStart Date End Date Jack Ayala MD PCP - GeneralFamily Stybetgs12/28/23Team MemberRelationshipSpecialtyStart Date End Date Jack Ayala MD [address] [place] [place] [address] PCP - GeneralFamily Medicine07/28/24Team MemberRelationshipSpecialtyStart DateEnd Date Jack Ayala MD [address] [place] [address] PCP - GeneralFamily Medicine07/28/24Team MemberRelationshipSpecialtyStart DateEnd Date Jack Ayala MD [address] [place] [address] PCP - GeneralFamily Medicine07/28/24Team MemberRelationshipSpecialtyStart DateEnd Date Jack Ayala MD [address] [place] [address] PCP - GeneralFamily Medicine07/28/24Team MemberRelationshipSpecialtyStart DateEnd Date Jack Ayala MD [address] [place] [address] PCP - Generalmily Medicine07/28/24Team MemberRelationshipSpecialtyStart DateEnd Date Jack Ayala MD [address] [place] [address] PCP - Generalmi Medicine07/28/24 Tom Rosario DO [address] [place] [address] Referring PhysicianNeurology01/13/25Team MemberRelationshipSpecialtyStart DateEnd Date Jack Ayala MD [address] [place] [address] PCP - Generalmi Medicine07/28/24 Tom Rosario DO [address] [place] [address] Referring PhysicianNeurology01/13/25Team MemberRelationshipSpecialtyStart DateEnd Date Jack Ayala MD [address] [place] [address] PCP - Generalmily Medicine07/28/24 Tom Rosario DO [address] [place] [address] Referring PhysicianNeurology01/13/25Team MemberRelationshipSpecialtyStart DateEnd Date Jack Ayala MD [address] [place] [address] PCP - GeneralFamily Medicine07/28/24 Tom Rosario DO [address] [place] [address] Referring PhysicianNeurology01/13/25Team MemberRelationshipSpecialtyStart DateEnd Date Jack Ayala MD [address] [place] [address] [facility] - [facility]07/28/24 Tom Rosario DO [address] [place] [address] Referring PhysicianNeurology01/13/25Team MemberRelationshipSpecialtyStart DateEnd Date Jack Ayala MD [address] [place] [address] PCP - Generalmi Medicine07/28/24 Tom Rosario DO [address] [place] [address] Referring PhysicianNeurolog01/13/25 Reason for Visit (unrecogniz ed section and content) ReasonCommentsToenail CareNon DM NailsReasonCommentsSeizuresReasonComments Toenail CareNon DM nail careReasonCommentsToenail CareReasonCommentsSkin Check FOR RECORDS PERTAINING TO PATIENTS WHO ARE OR HAVE BEEN ENROLLED IN A CHEMICAL DEPENDENCY/SUBSTANCEABUSE PROGRAM, SOME INFORMATION MAY BE OMITTED. This clinical summary was aggregated from multiple sources. Caution should be exercised in using it in the provision of clinical care. This summary normalizes information from multiple sources, and as a consequence, information in this document may materially change the coding, format and clinical context of patient data. In addition, data may be omitted in some cases. CLINICAL DECISIONS SHOULD BE BASED ON THE PRIMARY CLINICAL RECORDS. [facility]. provides no warranty or guarantee of the accuracy or completeness of information in this document.
--- OUTSIDE RECORDS SUMMARY | 2025-10-31 10:56 | XMS_ITS | Clinical Summary ---
Author Organization [facility] Address [address] [place] [address] Care Team Providers Care Wood Technologist Name Role Phone Jack Ayala MD Primary Care Provider [phone] Talib Rama DO Unavailable [phone] Allergies No known active allergies Medications MedicationSigDispense QuantityRefillsLast FilledStart DateEnd DateStatus Linzess 72 MCG capsule Take 72 mcg by mouth DailyActive QUEtiapine (SEROquel) 25 MG tablet Indications:Sleep-wake cycle disorder1-2 po q hs 180 tablet 5Active PHENobarbital (Luminal) 97.2 MG tablet Indications:Seizure (HCC)Take 1 tablet (97.2 mg) by mouth at bedtime R56.9 90 tablet 5Active carBAMazepine ER (Carbatrol) 200 MG 12 hr capsule Indications:Seizure disorder (HCC)Take 1 capsule (200 mg) by mouth in the morning and 1 capsule (200 mg) before bedtime. 180 capsule 5Active Active Problems ProblemNoted DateDiagnosed DateSeizure oquxlrli86/23/2024Sleep-wake cycle tkyclphp45/21/2024REM behavioral ixdystyp12/21/2024ehavioral and emotional disorder with onset in lkjjyiiij25/21/2024REM sleep behavior disorderScoliosis ConvulsionsMental disability Overview (07/26/2024): Mental Retardation Encounters DateTypeDepartmentCare IdiyCkbuhbncntt92/09/2025 3:10 PM EDTProcedure Visit [facility] [address] [place] [id number] Jay Salcido, DPM Pain due to onychomycosis of toenails of both feet (Primary Dx)5Bamboo flowsheet [facility] [address] [place] [address] Jay Salcido DPM 08/13/2025Travelfrom Last 3 Months Family History Medical HistoryRelationNameCommentsMelanomaFatherCancerMotherHypertensionMother RelationNameStatusCommentsFatherAliveMotherAlive Social History Tobacco UseTypesPacks/DayYears UsedDateSmoking Tobacco: NeverSmokeless Tobacco: Never Tobacco Cessation:Counseling Given: Yes Alcohol UseStandard Drinks/WeekCommentsNever0 (1 standard drink = 0.6 oz pure alcohol)CommentsUnknownSex and Gender InformationValueDate RecordedSex Assigned at BirthNot on fileLegal YboXaxlcy24/15/2023 6:36 PM EDTGender Identity Not on fileSexual OrientationNot on file Last Filed Vital Signs Vital SignReadingTime TakenCommentsBlood Nwaaqsrf780/7203 9:44 AM EDT Ixgqu741501/13/2025 9:44 AM EDTTemperature--Respiratory Bsqu9141 3:07 PM EDTOxygen Hxxchmlcji10%01/13/2025 9:44 AM EDTInhaled Oxygen Concentration-- Hbzxxm36.4 kg (120 lb)08/13/2025 3:07 PM RMBEbheld931.5 cm (5' 2 )08/13/2025 3:07 PM EDTBody Mass Index21.9508/13/2025 3:07 PM EDT Plan of Treatment DateTypeDepartmentCare Team (Latest Contact Info)Ypwiilhayxh09/08/2026 3:30 PM ESTProcedure Visit [facility] [address] [place] [address] Jay Salcido DPM [facility] [facility] [address] [place] [address] 05/13/2026 9:35 AM EDTOffice Visit [facility] [address] [place] [address] Gloria Amaya APRN-MANAGER PIPELINE [address] [place] [address] Health MaintenanceDue DateLast DoneCommentsPap Smear2002Cervical Cancer Emaqigxbu69/13/2011HPV/Ugblyj0007/18/20111587Vievweqci49/13/2021Influenza Vaccine (#1) 509/, 09/25/2023, 09/02/2022, Additional history exists Pneumococcal Vaccine: Pediatrics (0 to 5 Years) and At-Risk Patients (6 to 64 Years)Aged OutNo longer eligible based on patient's age to complete [place] [address] Care Teams Team MemberRelationshipSpecialtyStart DateEnd Jack Ayala MD [address] [place] [address] PCP - GeneralFamily Medicine9/23/24 Rama Mayers DO [address] [place] [address] Referring PhysicianNeurology01/13/25
[2025-10-31 11:26] LABS: Hematocrit 40.3 % (36.0-48.0); Hemoglobin 13.3 g/dL (12.0-16.0); Immature Granulocytes Abs Auto 0.01 10^3/uL (0.00-0.03); Immature Granulocytes Pct Auto 0.2 % (0.0-0.5); Lymphocytes Absolute Auto 1.1 10^3/uL (1.2-3.8); Mean Corpuscular HGB Conc 33.0 g/dL (29.9-35.2); Mean Corpuscular Hemoglobin 32.8 pg (26.7-34.0); Mean Corpuscular Volume 99.3 fL (81.0-99.0); Platelet Count 169 10^3/uL (150-450); Red Blood Count 4.06 10^6/uL (4.20-5.40); White Blood Count 4.1 10^3/uL (4.0-11.0)
[2025-10-31 11:54] LABS: Alanine Aminotransferase 20 U/L (14-59); Albumin Globulin Ratio 0.9; Albumin Level 3.4 g/dL (3.4-5.0); Alkaline Phosphatase 72 U/L (46-116); Anion Gap 9.3; Aspartate Amino Transferase 21 U/L (15-37); Blood Urea Nitrogen 11.0 mg/dL (7.0-18.0); Calcium 8.4 mg/dL (8.5-10.1); Carbon Dioxide 32.9 mmol/L (21.0-32.0); Chloride 107 mmol/L (98-107); Estimated GFR (African America >60 (>=60 mL/min/1.73m^2); Estimated GFR (Non-African Ame >60 (>=60 mL/min/1.73m^2); Globulin 3.7 g/dL; Glucose 80 mg/dL (74-106); Potassium 4.2 mmol/L (3.5-5.1); Sodium 145 mmol/L (136-145); Total Protein 7.1 g/dL (6.4-8.2)
[2025-11-02 11:08] LABS: Carbamazepine(Tegretol),S 4.5 ug/mL (4.0-12.0); Phenobarbital, Serum 18 ug/mL (15-40)
== END 2025-10-31 10:51 | disposition home or self-care (01) ==
LOC: LAB 10:54
PROVIDERS: Visit Provider Nurse Practitioner Family
DX: R56.9 Unspecified convulsions (principal)
CPT/HCPCS: 36415; 80048; 80076; 80156; 80184; 85025